=== PATIENT | female | born 1970 | race Caucasian/White ===

== ENCOUNTER 2016-11-20 12:09 | Inpatient (IN) | payer MEDICAID, OTHER ==
[~2016-11-20] VITALS: Ht 167.6 cm; Wt 106.7 kg
[2016-11-20] VITALS (7 sets, daily range): BP systolic 129–159; BP diastolic 71–96; PULSE 67–104; RESP 16–18; O2SAT 95–98
[~2016-11-20 12:09] MED LIST: ALBU8.5H4 IH; AMIT100T2 PO; BENZ-12 PO; GABA600T PO; HYDR-3740 PO; INSLIS SUBQ; KLO1T PO; LISI40TA PO; OMEP40CA36 PO; ONDA4TAB12 PO; PRD5T PO; PRE20 PO
--- NOTE | 2016-11-20 12:30 | ED.REPORT ---
HPI-Neurologic Deficit Date of Service Nov 20, 2016 ED Provider: Farhat Kitchen MD The patient is a 46 year old female with history of MS, lupus, retinitis, fibromyalgia, congestive heart failure, hypertension, GERD, asthma, and anxiety , who presents to the emergency department for pain and pressure behind her eyes that began last night. Her symptoms have gradually worsened since onset and she has also experienced blurred vision and bilateral ear pain. Her symptoms are similar to when she previously had retinitis. She was hospitalized and treated with steroids. She also mentions left arm weakness that she first noticed last night. She feels like she is having an MS flare up. Nursing Notes Stated Complaint: BLURRY VISION Chief Complaint: Neuro Symptoms/ Deficits Nursing Notes Reviewed: Yes Allergies: Coded Allergies: Penicillins (Verified Allergy, Unknown, 05/14/15) iodine (Verified Allergy, Unknown, 05/14/15) tramadol (Verified Allergy, Unknown, 05/14/15) Scheduled Amitriptyline (Amitriptyline) 100 Mg Tablet 100 MG PO HS Gabapentin (Neurontin) 600 Mg Tablet 1,800 MG PO HS Insulin Human Lispro (HumaLOG U100 Insulin Vial) 100 Unit/Ml Unit 1-6 U SUBQ TID with meals, SS Check blood sugars before meals and at bedtime. Use correction factor only before meals. Blood Sugar Lispro Correction: <151, 0 units; 151-175, 1 unit; 176-200, 2 units; 201-225, 3 units; 226-250, 4 units; 251-275, 5 units; 276-300 , 6 units; 301-325, 7 units; 326-350, 8 units; 351-375, 9 units; 376-400, 10 units; >400, 12 units. Lisinopril (Lisinopril) 40 Mg Tablet 40 MG PO DAILY Omeprazole (Omeprazole) 40 Mg Capsule.dr 40 MG PO DAILY Prednisone (PredniSONE) 20 Mg Tablet 20 MG PO DAILY Prednisone (PredniSONE) 5 Mg Tab 5 MG PO DAILY 4 tabs po daily for 3 days; then take 3 tabs po daily for 3 days, then take 2 tabs po daily for 3 days; then take 1 tab po daily for 3 days. Scheduled PRN Albuterol HFA (Albuterol HFA) 8.5 Gm Hfa.aer.ad 1 PUFF IH Q4 PRN PRN For Shortness of Breath Benzonatate (Tessalon Perle) 100 Mg Capsule 100 MG PO TID PRN PRN For Cough Clonazepam (Clonazepam) 1 Mg Tab 1 MG PO TID PRN PRN For Anxiety Hydrocodone-Acetaminophen 10-325 mg (Hydrocodone-Acetaminophen 10-325 mg) 1 Tab Tablet 1 TAB PO QID PRN PRN For Pain Ondansetron ODT (Ondansetron ODT) 4 Mg Tab.rapdis 4 MG PO BID PRN PRN For Nausea General Time Seen by Provider: 12:40 Chief Complaint Other (blurry vision) Hx Obtained From: Patient, Other family... (Father) Arrived By: Wheelchair Sudden in Onset?: Yes Onset Occurred: Yesterday Symptom Duration: Since onset Progression Since Onset: Constant, Gradually worsening Location: : Head Quality: Painful Radiation: : Does not radiate Severity: Current: Moderate Severity: Maximum: Moderate Recent Healthcare: No recent hospitalization Similar Sx Previous: Yes Past Medical History Past Medical History Notes: She just discharged yesterday 05/13/15 from hospital after admission for Exacerbation MS Past Medical History MS Lupus Fibromyalgia Anxiety Nephrolithiasis Arthritis TMJ Reports: Asthma, Cancer, Congestive heart failure, GERD, Hypertension Past Surgical History Ankle surgery x5 Reports: Cholecystectomy, Hysterectomy, Tonsillectomy Reports: Tubal ligation Family History Reports: Diabetes mellitus Smoking History Current Every Day Smoker Social History Alcohol Use: Denies alcohol use Drug Use: Denies drug use Other Social History: Good social support, Local resident Ambulatory Status Independent Review of Systems Constitutional: Denies: Chills, Fever Eyes: Reports: Blurred bilateral, Eye pain bilateral Respiratory: Denies: Non-productive cough, Shortness of breath Cardiovascular: Denies: Chest pain GI: Denies: Nausea, Vomiting Neurologic: Reports: Focal weakness (left arm ), Headache Complete sys rev & neg: except as marked. Ears / Nose / Throat: Reports: Earache bilateral Physical Exam Initial Vital Signs Vital Signs (First) Date Time Temp Pulse Resp B/P Pulse Ox O2 Delivery O2 Flow Rate FiO2 11/20/16 12:13 36.7 104 16 142/90 95 Room Air Initial VS: Reviewed ENT: Mucous membranes moist, Conjunctiva normal, No scleral icterus Neck: Supple, Non-tender, Full range of motion Abdomen / GI: Soft, Non-tender, No guarding, No rebound, No distention Extremities: Vascular intact, Neuro intact, No swelling, No tenderness Skin: Warm, Dry, No cyanosis Psychiatric: Mood/affect normal, Behavior normal, Normal thought content General/Constitutional: Awake, Alert, No acute distress, Cooperative Head / Eyes: Atraumatic, Normocephalic, PERRL, EOMI, No nystagmus Respiratory / Chest: Atraumatic, Breath sounds NL, Breath sounds = bilat, No respiratory distress, No rales, No rhonchi, No wheezing Cardiovascular: Heart rate NL, Regular rhythm, Heart sounds NL, No murmurs, No rubs, Peripheral circulation NL Neurologic: Oriented X3, Speech NL, No sensory deficits, CN II - XII intact, Cerebellar NL, Memory NL Speech is fluent, linear, and organized. Visual cano are equal bilaterally but she does have somewhat peripheral vision bilaterally. Sausage Meat Trimmer strength is slightly diminished on the left. Strength to elbow flexion is slightly diminished on the left. Lower Extremity / Pelvis / MS: No swelling, Non-tender, Neurologic intact, Vascular intact, No edema No calf swelling or tenderness. She has an ankle brace on her left ankle. Interpretation & Diagnostics Lab Results Interpretation Result Diagram: 11/20/16 1343 11/20/16 1406 Test 11/20/16 12:51 11/20/16 13:43 11/20/16 14:06 11/20/16 14:20 Erythrocyte Sedimentation Rate 7mm/hr (0-32) White Blood Count 6.3th/mm3 (3.8-10.1) Red Blood Count 4.42mil/mm3 (3.90-5.20) Hemoglobin 13.5g/dL (12.0-15.6) Hematocrit 39.9% (35.0-46.0) Mean Corpuscular Volume 90.3fL (81-100) Mean Corpuscular Hemoglobin 30.5pg (27.0-35.0) Mean Corpuscular Hemoglobin Concent 33.8% (32.0-37.0) Red Cell Distribution Width 12.9% (12.3-15.4) Platelet Count 310bil/L (150-400) Neutrophils (%) (Auto) 58.7% (40-74) Lymphocytes (%) (Auto) 27.9% (14-46) Monocytes (%) (Auto) 9.3% (4-12) Eosinophils (%) (Auto) 3.0% (0-5) Basophils (%) (Auto) 0.5% (0-3) Sodium Level 141mEq/L (134-144) Potassium Level 4.3mEq/L (3.5-5.2) Chloride Level 102mEq/L (97-108) Carbon Dioxide Level 25mmol/L (18-29) Blood Urea Nitrogen 21mg/dL (6-24) Creatinine 0.86mg/dL (0.57-1.00) Estimat Glomerular Filtration Rate 103mL/min (>59) Glucose Level 95mg/dL (60-99) Calcium Level 9.6mg/dL (8.5-10.1) Magnesium Level 2.1mg/dL (1.6-2.6) Total Bilirubin 0.2mg/dL (0.0-1.2) Aspartate Amino Transf (AST/SGOT) 26U/L (0-50) Alanine Aminotransferase (ALT/SGPT) 50U/L (0-32) Alkaline Phosphatase 72U/L (25-150) Total Protein 6.8g/dL (6.4-8.4) Albumin 4.1g/dL (3.4-5.0) Hold Tesfaye Top Tube Received (Received) C-Reactive Protein 0.3mg/dL (0.0-0.5) ECG Interpretation ECG Interpretation: Normal sinus rhythm with a rate of 81 Time: 13:38 Interpreted by: ED physician CT Head Interpretation IMPRESSION: No acute intracranial abnormality. Dictated by: Yovanny Greco M.D. on 11/20/2016 at 13:10 Study: Head CT no contrast Interpretation / Wet Read by: Interpret - Radiologist Re-Eval/Medical Decision Med Decision/Clinical Course The patient is a 46 year old female with history of MS, lupus, previous episodes of optic neuritis/retinitis who presents to the emergency department complaining of bilateral retro-orbital pain as well as progressively worsening blurry vision over the last 24 hours. On arrival she was unable to distinguish any letters on the visual acuity exam. She was afebrile with stable vital signs show additionally had weakness of her left arm which she states has been intermittent over the last couple of days as well. All of these symptoms are similar in nature to previous MS flares which have required treatment with high-dose steroids in the past. Currently, she is not on any immune modulating drugs or steroids. CT scan of the head demonstrated no evidence of acute intracranial process. Laboratory studies were notable as below: CBC unremarkable, CMP unremarkable, CRP is WNL, UA pending. The patient was discussed with her neurologist Dr. Baires who felt that the patient should be at this time started on high-dose steroids. We administered 1000 mg IV methylprednisolone. The patient reported significant pain is initially treated with oral Lignum though did not achieve symptom relief. Thereafter, I administered 0.5 mg of IV hydromorphone. She reported symptomatic improvement. At this time I see no evidence of acute ischemic stroke though this does remain on the differential diagnosis. Given her overall neurologic history and clinical picture this seems unlikely and she is not within any TPA window. She is without fever, leukocytosis or meningismus and acute infectious etiology such as meningitis seems unlikely. The patient was discussed with the admitting hospitalist transfer [facility] the [facility] in consultation with neurology for further workup and management. Source of Hx: Old records, Family Re-Evaluation/Progress : Time of Eval: 14:15 Re-Evaluation/Progress Note: Discussed plan for admission. All questions were addressed. Consultation #1: Referral / Consult Name: Sree Baires MD Consulted With: Neurology Call Returned at: 13:54 Grip Assembler: Agrees with eval, Agrees with plan Consultation #2: Referral / Consult Name: Francisco Castro MD Consulted With: Hospitalist Requested Call at: 13:47 Call Returned at: 14:36 Grip Assembler: Will see patient, Agrees with eval, Agrees with plan, Accepts admit Counseled Regarding: Diagnosis, Lab results, Need for admission Discharge & Departure Impression: Primary Impression: Exacerbation of multiple sclerosis Additional Impressions: Blurry vision, bilateral Retro-orbital pain of both eyes Weakness of left arm History of lupus History of optic neuritis Disposition: ADMITTED TO HOSPITAL Discharge Condition All VS Reviewed: Yes Condition: Stable Referrals: Radha Ramírez (PCP) Crit Care Except Billable Proc Time Spent: 105-134 minutes Services Performed: Patient management by me, Time spent at bedside, Reviewing test results, Reviewing imaging, Discussing patient care, Documentation in record, Time with fam/surrogate Scribe Attestation Portions of this note were transcribed by Quiana Norton. IDr. Princet personally performed the history, physical exam and medical decision-making; I reviewed and confirmed the accuracy of the information in the transcribed note. Signed by: Zeinab Sage, 11/20/2016 and 1515. copies to: Radha Ramírez Beck O MD Nov 20, 2016 12:30 Quiana Norton Nov 20, 2016 12:55
[2016-11-20] MEDS ORDERED: HYDROcodone-APAP 7.5-325 mg Tablet PO ONE (13:00)
[2016-11-20] MEDS ORDERED: Alum-Mag Hydrox-Simeth 30 mL Suspension PO PRN (13:00)
--- NOTE | 2016-11-20 13:13 | DRSVH ---
PROCEDURE: CT BRAIN WITHOUT CONTRAST ([id number]) INDICATIONS: headache, blurry vision TECHNIQUE: Noncontrast 4.5 mm thick angled axial sections acquired from the foramen magnum to the vertex, with c oronal reformats. COMPARISON: [facility], MR, MS BRAIN W & W/O CONT, 03/08/2015, 12:21. [facility], MR, MR MS BRAIN W&WO CON, 05/12/2015, 13:02. FINDINGS: Image quality: Excellent. CSF spaces: Basal cisterns are patent. No extra-axial fluid collections. Ventricles are normal in size and shape. Brain: No midline shift. No intracranial masses or hemorrhage. Helm-white matter interface is norm al. Skull and face: Calvarium and visualized facial bones are intact, without suspicious lesions. Sinuses: Visualized sinuses and mastoids are clear. IMPRESSION: No acute intracranial abnormality. Dictated by: Yovanny Greco M.D. on 11/20/2016 at 13:10 Approved by: Yovanny Greco M.D. on 11/20/2016 at 13:11
[2016-11-20] MEDS: Ondansetron 2 mg/mL 2 mL Inj IVPUSH PRN ×3 (13:20→21:35)
[2016-11-20 14:11] LABS: BASOPHILS % (AUTO) 0.5 % (0-3); MONOCYTES % (AUTO) 9.3 % (4-12); Mean Corpuscular Hemoglobin 30.5 pg (27.0-35.0); Mean Corpuscular Volume 90.3 fL (81-100); NEUTROPHILS % (AUTO) 58.7 % (40-74); Platelet Count 310 bil/L (150-400)
[2016-11-20] MEDS ORDERED: Methylpred Sodium Succ Inj 1,000 MG in Dextrose 5% 250 ML IV ONE (14:15)
[2016-11-20 14:46] LABS: Magnesium 2.1 mg/dL (1.6-2.6)
[2016-11-20] MEDS ORDERED: Polyethylene Glycol (PEG) 17 Gm Powder PO PRN (14:55)
[2016-11-20] MEDS ORDERED: HYDROmorphone 0.5 mg/0.5 mL iSecure Syringe ONE (15:17)
[2016-11-20] MEDS ORDERED: Glucose 40% Oral Gel 15 Gm Tube PO PRN (15:20)
[2016-11-20] MEDS ORDERED: Albuterol 2.5 mg/3 mL Inhalation Solution NEB PRN (16:00)
[2016-11-20] MEDS: Insulin LISPRO 300 Unit/3 mL Inj SUBQ SCH ×2 (17:30→21:36)
--- NOTE | 2016-11-20 17:36 | PCM.HPMED ---
Subjective Date of Service Nov 20, 2016 Primary Provider: Admitting Physician: Primary Care Physician: Radha Ramírez Attending Physician: Admit Status: From the Emergency Department Chief Complaint: - blurry vision and bilateral ear pain History of Present Illness: 46 year old female with h/o multiple sclerosis, lupus, retinitis, fibromyalgia, congestive heart failure, hypertension, GERD, asthma, anxiety, presented to ED with c/o pain and pressure behind her eyes that began last night. She states that her symptoms have gradually worsened since onset and she has also experienced blurred vision and bilateral ear pain. It is also associated with head ache. She had similar episodes in the past and was diagnosed with retinitis. She was admitted and treated with intravenous steroids. She also mentions left arm weakness that she first noticed last night. She feels like she is having an exacerbation of multiple sclerosis. Pt seen and examined bed side. She still c/o blurry vision, Also mentions that her pain his significantly less than before. Allergies Coded Allergies: Penicillins (Verified Allergy, Unknown, 05/14/15) iodine (Verified Allergy, Unknown, 05/14/15) tramadol (Verified Allergy, Unknown, 05/14/15) PMH MS Lupus Fibromyalgia Anxiety Asthma, Congestive heart failure, GERD, Hypertension Surgical History - Ankle surgery - Cholecystectomy, - Hysterectomy, - Tonsillectomy - Tubal ligation Family History - Diabetes in both parents Social History Hx Alcohol Use: No ("i am allergic to it") Hx Substance Use: No Smoking Status: Current Every Day Smoker Exam Vital Signs Vital Sign - Last Date Time Temp Pulse Resp B/P Pulse Ox O2 Delivery O2 Flow Rate FiO2 11/20/16 12:13 36.7 104 16 142/90 95 Room Air Exam General/Constitutional: Awake, Alert, No acute distress, Cooperative Head / Eyes: Atraumatic, blurry vision. ENT: Mucous membranes moist, Conjunctiva normal, No scleral icterus Neck: Supple, Non-tender, Full range of motion Respiratory: Atraumatic, Breath sounds normal and bilaterally equal, No respiratory distress, No rales, No rhonchi, No wheezing Cardiovascular: Regular rate and rhythm, no murmur, no gallop, S1,S2: normal Abdomen / GI: Soft, Non-tender, No guarding, No rebound, No distention Extremities: Vascular intact, Neuro intact, No swelling, No tenderness Skin: Warm, Dry, No cyanosis Psychiatric: Mood/affect normal, Behavior normal, Normal thought content Neurologic: Oriented X3, Normal speech, No focal neurological defects, Normal strength,. Lab and Diagnostics Result Diagram: 11/20/16 1343 11/20/16 1406 Assessment & Plan Blurry vision likely acute multiple sclerosis - Will start on IV methyl prednisolone 1000 mg daily - Neurology consulted from ED. Will follow their recommendations. Diabetes - Will place on insulin lispro sliding scale Anxiety - on amitriptyline 50 mg HS - clonazepam prn Neuropathic pain - on gabapentin GI ppx: PPI DVT ppx: Heparin Antiemetics and Analgesics as per protocol Code: Full code Status: To be admitted as inpatient likely due to complexity of medical conditions that will require more than two days of hospital stay. Pain Evaluation: Adequate Pain Control GI Prophylaxis: Proton Pump Inhibitor VTE Prophylaxis: Sub-Q Heparin (Unfractionated) Resuscitation Status: CPR: Attempt Resuscitation Ace Shaffer MD Nov 20, 2016 15:14
[2016-11-20] MEDS ORDERED: HYDR25TA4 PO (17:48)
[2016-11-20] MEDS ORDERED: OXYC-407 PO (17:48)
[2016-11-20] MEDS ORDERED: AMLO10TA3 PO (17:48)
[2016-11-20] MEDS: HYDROmorphone 1 mg/mL Inj IVPUSH PRN (17:55)
--- NOTE | 2016-11-20 18:43 | NUR ---
Admit Pt admitted to [facility] from ED at 1638. pt c/o forehead/eye pain 06/01. IV in LFA patent. tele in place SR 70-80s. Pt is SBA d/t weakness from MS-per pt. Personal belongings put away. Bed in low position, upper rails up, call light in reach. Admit info complete, including med rec.
[2016-11-20 19:48] LABS: APPEARANCE,URINE CLEAR (CLEAR,HAZY); COLOR,URINE YELLOW (YELLOW); OCCULT BLOOD,URINE NEGATIVE (NEGATIVE); PH,URINE 6.5 (5.0-8.0); UROBILINOGEN,URINE NORMAL (NORMAL)
[2016-11-20] MEDS: Pantoprazole 20 mg ER24 Tablet PO SCH (19:55)
[2016-11-21] VITALS (9 sets, daily range): BP systolic 126–148; BP diastolic 81–93; PULSE 72–120; RESP 18; O2SAT 96–100
[2016-11-21] MEDS: Ondansetron 2 mg/mL 2 mL Inj IVPUSH PRN ×5 (01:30→19:59)
[2016-11-21] MEDS: HYDROmorphone 1 mg/mL Inj IVPUSH PRN ×5 (02:56→19:59)
[2016-11-21 06:04] LABS: BASOPHILS % (AUTO) 0.1 % (0-3); EOSINOPHILS % (AUTO) 0.2 % (0-5); MONOCYTES % (AUTO) 1.9 % (4-12); Mean Corpuscular Hemoglobin 30.4 pg (27.0-35.0); NEUTROPHILS % (AUTO) 86.4 % (40-74); Platelet Count 315 bil/L (150-400)
--- NOTE | 2016-11-21 07:25 | NUR ---
Pain Pt reported significant pain to forehead and behind eyes all shift. Pt also nauseated due to pain. Pt receiving pain medication as well as nausea medication over shift to manage symptoms. Pt is getting up to BR SBA and ambulating with steady gait
--- NOTE | 2016-11-21 07:37 | NUR ---
Off unit Pt transported off unit to [facility] this morning at 0730. [facility]ing[employer]ma notified of transfer. Addendum: 11/21/16 at 0928 by SHA LERMA RN Pt back on unit, electronic service technician notified.
[2016-11-21] MEDS ORDERED: Methylpred Sodium Succ Inj 1,000 MG in Dextrose 5% 250 ML IV ONE (08:30)
[2016-11-21] MEDS: Insulin LISPRO 300 Unit/3 mL Inj SUBQ SCH ×4 (09:12→22:00)
[2016-11-21] MEDS ORDERED: 0.9% Sodium Chloride 250 ML ONE (09:17)
[2016-11-21] MEDS: Lisinopril 40 Tablet PO SCH (09:22)
--- NOTE | 2016-11-21 10:08 | DRSVH ---
PROCEDURE: MRI MULTIPLE SCLEROSIS BRAIN WITH AND WITHOUT CONTRAST ([id number]) INDICATIONS: MS Exacerbation TECHNIQUE: Noncontrast sagittal and axial FLAIR, axial and coronal T2 fast spin echo, axial VIBE, axial gradient echo, axial diffusion and ADC through the brain. After the administration of contrast, axial and co lili VIBE with fat saturation through the brain. COMPARISON: [facility], MR, MS BRAIN W & W/O CONT, 03/08/2015, 12:21. [facility], MR, MR MS BRAIN W&WO CON, 05/12/2015, 13:02. FINDINGS: Image quality: Limited by motion artifact. CSF spaces: Ventricles are normal in size and shape. Basal cisterns are patent. No extra-axial flu id collections. Brain: No intracranial bleeds or mass effects. Helm-white matter interface appears intact. No susp icious white matter lesions. No abnormal intracranial enhancement. Diffusion weighted images show n o acute ischemic insults. Single, punctate, focus of increased T2 signal in the left frontal subcorti bhupinder white matter is stable compared to prior examinations. Brainstem appears normal. Normal intravas cular flow voids are present. Skull and face: Calvarial marrow signal is normal. Orbits appear normal. Sinuses: Sinuses and mastoids are clear. IMPRESSION: 1. Stable examination with no acute intracranial disease process. 2. Single, punctate focus of increased T2 signal in the left frontal subcortical white matter is stab le compared to prior examinations. No white matter lesions are identified in the brain parenchyma wen t are specific for demyelinating process. 3. No abnormal intracranial mass or mass effect. 4. No abnormal postcontrast enhancement. Dictated by: Kari Ortega MD, PhD on 11/21/2016 at 9:26 Approved by: Kari Ortega MD, PhD on 11/21/2016 at 10:06
--- NOTE | 2016-11-21 10:28 | DRSVH ---
PROCEDURE: MRI THORACIC SPINE WITH AND WITHOUT CONTRAST ([id number]) INDICATIONS: MS Exacerbation TECHNIQUE: Noncontrast sagittal T1 spin echo and T2 fast spin echo, sagittal STIR, axial T1 and T2 fast spin ech o through the thoracic spine. After the administration of contrast, axial and sagittal T1 spin echo with fat saturation through the thoracic spine. COMPARISON: [facility], MR, MR THORACIC SPINE W&WO CON, 05/13/2015, 12:22. FINDINGS: Image quality: Excellent. Alignment and curvature: There is normal bony alignment. Marrow: 1 cm lesion in the T5 vertebral body which demonstrates peripheral enhancement stable compare d to prior examinations likely represents a hemangioma. Reactive endplate change is noted adjacent to the T7-T8, Z2-J2-A6-T10 discs. No acute vertebral body compression fractures. Spinal cord: Visualized spinal cord is of normal signal and size, without abnormal enhancement. Paraspinous soft tissues: No paravertebral masses or abnormal enhancement. 1.4 cm right renal cyst i s partially visualized. Miscellaneous: Small T11-T12 central disc protrusion superimposed upon a minimal, diffuse disc bulge is stable compared to prior examination. Central canal and foramina appear widely patent at all scan eugene levels. IMPRESSION: 1. Stable examination compared to 05/13/15. 2. No abnormal spinal cord signal or enhancement to suggest demyelinating process. 3. No central stenosis. 4. No neural foraminal narrowing. 5. No neural impingement. Dictated by: Kari Ortega MD, PhD on 11/21/2016 at 10:07 Approved by: Kari Ortega MD, PhD on 11/21/2016 at 10:27
--- NOTE | 2016-11-21 10:47 | DRSVH ---
PROCEDURE: MRI CERVICAL SPINE WITH AND WITHOUT CONTRAST ([id number]) INDICATIONS: MS Exacerbation TECHNIQUE: Noncontrast sagittal T1 spin echo and T2 fast spin echo, sagittal STIR, sagittal PD fast spin echo, f oraminal oblique sagittal T2 fast spin echo, axial gradient echo or T2 fast spin echo through the cer vical spine. After the administration of contrast, sagittal and axial T1 spin echo with fat saturati on through the cervical spine. COMPARISON: [facility], MR, MR CERVICAL SPINE W&WO CON, 05/12/2015, 13:02. [facility], MR, CERVICAL SPINE W&W/O CONTRAST, 03/08/2015, 12:21. FINDINGS: Image quality: Limited by motion artifact. Alignment and curvature: There is normal bony alignment and curvature. Marrow: Marrow demonstrates normal overall signal. Spinal cord: Visualized spinal cord is normal in size, without white matter lesions within the limit ations caused by motion artifact. No suspicious intramedullary enhancement within limitations caused by motion artifact. No cerebellar tonsillar herniation. Paraspinous soft tissues: No paravertebral masses or suspicious enhancement. C2-C3: Normal appearance. C3-C4: Loss of disc signal. Minimal, diffuse disc bulge. No central stenosis. No neural foraminal escobar rowing. No neural impingement. C4-C5: Loss of the signal. Mild, diffuse disc bulge. No central stenosis. No neural foraminal narrowi ng. No neural impingement. C5-C6: Loss of disc signal. Mild, diffuse disc bulge. Moderate-sized central disc protrusion superimp osed on diffuse disc bulge. Mild narrowing of the central canal secondary to disc disease. No neural foraminal narrowing. C6-C7: Loss of disc signal. Mild, diffuse disc bulge. Small left central disc protrusion superimposed on diffuse disc bulge. Mild central canal secondary to disease. Mild left neuroforaminal narrowing s econdary to disc disease. C7-T1: Normal appearance. IMPRESSION: 1. Image quality limited by motion artifact. 2. No abnormal spinal cord signal or enhancement identified within limitations caused by motion artif act. 3. Multilevel degenerative disc disease. 4. Mild C5-C6 and C6-C7 central canal narrowing. 5. Mild left C6-C7 neural foraminal narrowing. Dictated by: Kari Ortega MD, PhD on 11/21/2016 at 10:37 Approved by: Kari Ortega MD, PhD on 11/21/2016 at 10:45
[2016-11-21] MEDS: Pantoprazole 20 mg ER24 Tablet PO SCH ×2 (11:25→20:23)
--- NOTE | 2016-11-21 14:10 | NUR ---
Social Work-initial assessment: Data:See initial assessment. Pt is a 46 y/o female who was admitted on 11/20/16 for MS Flare per H&P. Pt's insurance is [employer] and PCP is Radha Ramírez MD. EMR Reviewed. SW met with pt at bedside to discuss discharge planning,SW role explained. Pt is alert and oriented x3. Pt resides at home with her mom and dad in [place] where she remains independent with ADLs. Pt's home is 2 story, but has stair climber. Pt does not drive and uses a fww or cane at baseline. Pt has no HH or SNF history. Pt has no senior care care insurance or VA benefits. SW discussed DPOA/ advanced directive, pt has never completed this forms, but is interested. SW provided her with forms to complete. Pt has [facility] caregivers 110 hours a month and her CM is rhoda Joness faxed. Pt states her parents will provide transport home. Per RN notes, pt has been up independent in her room. SW provided plan and phone number on white board in room. No anticipated discharge needs. SW will continue to follow if needs arise. Assessment:Pt who is independent at baseline. Plan: Pt to discharge home when medically stable via POV. Pt to continue with [facility] at home. No anticipated discharge needs. SW will continue to follow if needs arise. Marilu Alford MSW
--- NOTE | 2016-11-21 15:12 | PCM.PNMED ---
Subjective Date of Service Nov 21, 2016 Subjective Flori reports she is doing a bit better this morning. She is still having pain behind her eyes and sinuses and her vision is still blurry. She reports she did have URI symptoms recently, but that has resolved. She also continues to smoke. She voiced that she would like Fentanyl instead of Dilaudid because it was more effective last time. Exam Vital Signs Vital Sign - Last Date Time Temp Pulse Resp B/P Pulse Ox O2 Delivery O2 Flow Rate FiO2 11/21/16 04:41 36.4 78 18 138/89 100 Nasal Cannula 2.00 Intake and Output 11/20/16 11/20/16 11/21/16 Cumulative From/Thru 15:00 23:00 07:00 11/20/16 12:13 - 11/21/16 06:18 Intake Total 800 ml 800 ml Output Total 1950 ml 1950 ml Balance -1150 ml -1150 ml Intake Oral 800 ml 800 ml Output Urine Total 1950 ml 1950 ml Exam General/Constitutional: Awake, Alert, No acute distress, Cooperative Head / Eyes: Atraumatic, blurry vision. EOMI ENT: Mucous membranes moist, Conjunctiva normal, No scleral icterus Neck: Supple, Non-tender, Full range of motion Respiratory: CTAB No respiratory distress, No rales, No rhonchi, No wheezing Cardiovascular: Regular rate and rhythm, soft systolic murmur noted Abdomen / GI: Soft, Obese, Non-tender, No guarding, No rebound, No distention Extremities: Vascular intact, Neuro intact, No swelling, No tenderness Skin: Warm, Dry, No cyanosis Psychiatric: Mood/affect normal, Behavior normal, Normal thought content Neurologic: Oriented X3, Normal speech, No focal neurological defects, Normal strength,. IVs and Medications Medications Reviewed: Medications were reviewed in detail Lab and Diagnostics Result Diagram: 11/21/1651911/21/16519 Assessment & Plan 46 yo F with h/o MS, Lupus, optic neuritis, HTN, and anxiety who presents with complaints of pain and pressure behind her eyes beginning last night. Admitted for possible exacerbation of MS Blurry vision, POA -Likely due to MS exacerbation of Optic neuritis -Will start on IV methyl prednisolone 1000 mg daily -Awaiting Neurology consultation -IV Dilaudid for pain management -Improving Steroid Induced DM2 - Will place on insulin lispro sliding scale H/O Anxiety - Continue Amitriptyline 50 mg HS - Clonazepam prn Neuropathic pain - Continue on Gabapentin - Consider changing dosing to TID instead of QHS GI ppx: PPI DVT ppx: Heparin Antiemetics and Analgesics as per protocol Code: Full code Status: To be admitted as inpatient likely due to complexity of medical conditions that will require more than two days of hospital stay. GI Prophylaxis: Proton Pump Inhibitor VTE Prophylaxis: Sub-Q Heparin (Unfractionated) VTE Mechanical Devices: Venous Foot Pump Resuscitation Status: CPR: Attempt Resuscitation Time spent 25 minutes Attending Statement I have seen and evaluated patient at bedside in addition to directly supervised care provided by resident physician. I agree with above documentation. Dagoberto Arango DO Nov 21, 2016 07:39 Santosh Holder DO Nov 22, 2016 08:16
--- NOTE | 2016-11-21 18:29 | NUR ---
Pain/nausea Pt continues to c/o pain/discomfort. She states pain is more localized to her head/pressure behind eyes but she has generalized discomfort as well, rating 8-9/10. She reports that she still has blurred vision. PRN Dilaudid mildly effective. Pt spoke with re: starting Fentanyl for better pain management and per pt, MD chose to defer to neurologist at this time. She did c/o vague nausea off and on this shift, PRN antiemetic given with effective results. Bed in lowest, locked position and call light in reach.
[2016-11-21] MEDS: oxyCODONE-Acetamin 5-325 mg Tablet PO PRN (22:29)
[2016-11-22] VITALS (9 sets, daily range): BP systolic 115–144; BP diastolic 73–101; PULSE 68–96; RESP 18; O2SAT 94–98
[2016-11-22] MEDS: Ondansetron 2 mg/mL 2 mL Inj IVPUSH PRN ×5 (00:33→20:57)
[2016-11-22] MEDS: HYDROmorphone 1 mg/mL Inj IVPUSH PRN ×5 (03:54→20:56)
--- NOTE | 2016-11-22 05:39 | NUR ---
Pain/tearfulness/Nausea/Tele Pt very tearful at the beginning of the shift and packed her belongings to leave the hospital because she felt that her pain/medications were not being managed well. Dr Baires assessed the Pt and made changes to medications per her request. Pt's mood and behavior improved during his assessment and no other tearful episodes noted. Eye/forehead/ankle pain managed with Dilaudid and Percocet with good effect. Zofran x 2 given for c/o nausea with good effect as well. "I can not believe I slept for a few hours" smiling. Tele:SR HR 80-90s. Denies shortness of breath and chest pain. Pt resting at this time.
[2016-11-22] MEDS: oxyCODONE-Acetamin 5-325 mg Tablet PO PRN ×3 (06:37→22:34)
[2016-11-22 06:38] LABS: EOSINOPHILS % (AUTO) 0 % (0-5); Mean Corpuscular Volume 90.5 fL (81-100); Platelet Count 380 bil/L (150-400)
[2016-11-22 07:13] LABS: NEUTROPHILS % (AUTO) 85 % (40-74)
[2016-11-22 07:14] LABS: BASOPHILS % (AUTO) 0 % (0-3); MONOCYTES % (AUTO) 5 % (4-12)
[2016-11-22] MEDS: Insulin LISPRO 300 Unit/3 mL Inj SUBQ SCH ×4 (08:00→21:32)
[2016-11-22] MEDS: Pantoprazole 20 mg ER24 Tablet PO SCH ×2 (08:50→20:55)
[2016-11-22] MEDS: Lisinopril 40 Tablet PO SCH (08:51)
--- NOTE | 2016-11-22 09:47 | PCM.PNMED ---
Subjective Date of Service Nov 22, 2016 Subjective Was able to sleep better overnight with the addition of Percocet for breakthrough pain. Still complaining of retro-orbital pain and blurry vision. She reports this has not improved much since yesterday. Has been able to tolerate PO intake. Exam Vital Signs Vital Sign - Last Date Time Temp Pulse Resp B/P Pulse Ox O2 Delivery O2 Flow Rate FiO2 11/22/16 05:14 36.6 74 18 116/73 96 CPAP 11/21/16 04:41 2.00 Intake and Output 11/21/16 11/21/16 11/22/16 Cumulative From/Thru 15:00 23:00 07:00 11/20/16 12:13 - 11/22/16 06:46 Intake Total 790 ml 800 ml 2390 ml Output Total 2200 ml 1300 ml 5450 ml Balance -1410 ml -500 ml -3060 ml Intake Oral 790 ml 800 ml 2390 ml Output Urine Total 2200 ml 1300 ml 5450 ml Exam General/Constitutional: Awake, Alert, No acute distress, Cooperative Head / Eyes: Atraumatic, PERRLA, EOMI ENT: Mucous membranes moist, Conjunctiva normal, No scleral icterus Neck: Supple, Non-tender, Full range of motion Respiratory: CTAB No respiratory distress, No rales, No rhonchi, No wheezing Cardiovascular: Regular rate and rhythm, soft systolic murmur noted Abdomen / GI: Soft, Obese, Non-tender, No guarding, No rebound, No distention Extremities: Vascular intact, Neuro intact, No swelling, No tenderness Skin: Warm, Dry, No cyanosis Psychiatric: Normal mood and affect this morning Neurologic: Alert and oriented x3, conversive, fluent IVs and Medications Medications Reviewed: Medications were reviewed in detail Lab and Diagnostics Result Diagram: 11/22/1660911/22/16 0610 Assessment & Plan 46 yo F with h/o MS, Lupus, optic neuritis, HTN, and anxiety who presents with complaints of pain and pressure behind her eyes beginning last night. Admitted for possible exacerbation of MS and Optic Neuritis Blurry vision, POA -Likely due to MS exacerbation of Optic neuritis -Will continue IV Solu-medrol 250mg 4x per day. Patient had IV Solumedrol 1gram on 11/21. Per recommendations, will need 3 days of intense IV solu-medrol then transition to PO Prednisone (1mg/kg) for 11 days to make 14 days total of aggressive steroid therapy. Then short taper off. -Appreciate Neurology input and recommendations. -IV Dilaudid and PO Percocet for pain management -Stable -Elevated WBC today, likely due to Steroids, but continue to monitor closely for s/s of infection. Steroid Induced DM2, POA - Will place on insulin lispro sliding scale H/O Anxiety, POA - Continue Amitriptyline 50 mg HS - Clonazepam 1mg TID prn Neuropathic pain, POA - Continue on Gabapentin - Dosing per Neurology GI ppx: PPI DVT ppx: Heparin Antiemetics and Analgesics as per protocol Code: Full code Status: Will require at least 2-3 days for IV steroids and tapering. Pain Evaluation: Adequate Pain Control GI Prophylaxis: Proton Pump Inhibitor VTE Prophylaxis: Sub-Q Heparin (Unfractionated) VTE Mechanical Devices: Venous Foot Pump Resuscitation Status: CPR: Attempt Resuscitation Time spent 30 minutes Attending Statement I have seen and evaluated patient at bedside in addition to directly supervising care provided by resident physician. I agree with above documentation. Dagoberto Arango DO Nov 22, 2016 07:39 Santosh Holder DO Nov 22, 2016 14:37
--- NOTE | 2016-11-22 09:48 | CONS ---
[address] [address] CONSULTATION REPORT PATIENT: RICK BRIGGS : 1970 MR#: [id number] ADMIT: 11/20/2016 JOB ID: [id number] DATE OF SERVICE: 11/20/2016 NEUROLOGY CONSULTATION: CHIEF COMPLAINT: Bilateral blurred vision. HISTORY OF PRESENTING ILLNESS: The patient is a pleasant 46-year-old, right-handed woman with multiple medical problems, who does have a history reportedly of relapsing remitting multiple sclerosis and systemic lupus erythematosus followed by Dr. Ramírez, and has seen Dr. Taylor at the [facility] in 2014. She presents with new onset of blurred vision in both eyes. She reports that this has been of gradual onset. She reports that she has retrobulbar pain. She has also noted left upper extremity weakness, which she reports is mild and developed gradually. I did see her in 2014, when she was treated for a presumed optic neuritis exacerbation. It appears that she then saw her primary care provider, Dr. Aguilar, who contacted me and was concerned that some of her symptoms may have been secondary to somatization. It appears that after that she re-established with another provider and care beyond this is unclear. She has not seen me since 2014, and it is unclear if she has seen a neurologist in the interim. She reports retrobulbar pain. She also reports "color washout." PAST MEDICAL HISTORY: She does also have a history reportedly of asthma, anxiety , gastroesophageal reflux disease, hypertension, congestive heart failure and fibromyalgia. ALLERGIES: 1. PENICILLIN. 2. IODINE. 3. TRAMADOL. MEDICATIONS: 1. Amitriptyline 100 mg p.o. q.h.s. 2. Gabapentin. She reports being on 2400 mg of gabapentin at bedtime. 3. She also is diabetic and is on lispro. 4. Hypertensive on lisinopril. 5. She also takes omeprazole. 6. P.r.n. are: a. Albuterol. b. Benzonatate. c. Clonazepam. d. Hydrocodone/acetaminophen. e. Ondansetron. She also reports a history of nephrolithiasis, temporomandibular joint dysfunction. She also reports a history of cancer; it is unclear which type. PAST SURGICAL HISTORY: She has had five ankle surgeries and reports that she is taking oxycodone p.r.n., as she is recovering from the most recent ankle surgery. She does report a history of a cholecystectomy, hysterectomy, tonsillectomy and tubal ligation. FAMILY HISTORY: Diabetes. SOCIAL HISTORY: She does smoke. No drugs or alcohol. REVIEW OF SYSTEMS: A complete review of systems was performed and was remarkable for above noted. She also notes a headache associated with the retrobulbar pain. She did have a CT of her head which demonstrated no acute intracranial abnormality. She was screened for a possible urinary tract infection with UA that was unremarkable. LABORATORY STUDIES: WBC of 6.3, hemoglobin 13.5, hematocrit 39.9, and platelets of 310. Chemistries: Sodium 141, potassium 4.3, chloride was 102, bicarb was 25, BUN was 21, creatinine 0.86 and glucose 95. LFT were within normal limits with the exception of an ALT of 50. Temperature 36.7, pulse of 104, respiratory rate of 16, blood pressure 142/90, pulse oximetry 95% on room air. PHYSICAL EXAMINATION: General: She is a well-developed, well-nourished woman in mild acute distress. Head: Normocephalic, atraumatic. Neck is supple. No carotid bruits were auscultated. Chest: Clear to auscultation. Heart: Regular rate and rhythm. Abdomen: Soft, nondistended, nontender. Extremities: No cyanosis, clubbing, or edema. NEUROLOGIC EXAMINATION: Mental status, she is awake, alert, oriented x3. Speech clear and fluent with intact comprehension. There was no aphasia. Cranial nerves: Pupils are equal, round, reactive to light. Extraocular movements were full and conjugate, although she reported discomfort with this activity while assessing this. Visual cano were full to confrontation. Visual acuity in both eyes was 20/400. Face appeared symmetrical. Facial sensation was intact to light touch and temperature. Auditory sensation was intact to finger rub. Palatal elevation was symmetrical. Tongue was midline. Sternocleidomastoid and trapezii were 5/5 bilaterally. Motor: There was trace weakness in the left upper extremity, 5-/5. The rest, normal tone and bulk. Sensation intact to light touch and temperature. Deep tendon reflexes 2+ and symmetrical. Plantars are flexor bilaterally. Coordination, djjxyc-hy-cnio was intact without evidence of dysmetria. Gait was deferred. IMPRESSION: It appears that she does have a recurrent optic neuritis based on clinical history and examination. I will contact Dr. Taylor to discuss any further recommendations. I do recommend five days of IV methylprednisolone. I also recommend obtaining magnetic resonance imaging studies of her brain and cervical and thoracic spines to exclude the possibility of an exacerbation of multiple sclerosis. It appears that she has followed with her primary care provider. I will attempt to ascertain if she has seen a neurologist in the interim since seeing me in 2014. It appears that she is not on any disease modifying therapy for either her relapsing remitting multiple sclerosis or her systemic lupus erythematosus. As this appears to be the second bout of optic neuritis, it is certainly possible that this may represent an underlying neuromyelitis optica and I will ascertain if this antibody has been sent for from her abstract searcher. If not, she would benefit from seeing her abstract searcher and possibly even a neuro-abstract searcher as an outpatient. I also recommend obtaining a Addison Montesinos virus screen. I do recommend that upon leaving the hospital should follow up with her primary care provider and establish with a neurologist preferably a multiple sclerosis specialist and return to see and possibly a neuro-abstract searcher. Thank you, again, Dr. Farhat Kitchen for allowing me to participate in the care of your patient. Please feel free to contact me with any questions or concerns. I will continue to follow. VICKY
--- NOTE | 2016-11-22 09:55 | DRSVH ---
PROCEDURE: X-RAY CHEST ONE VIEW, PORTABLE ([id number]) INDICATIONS: Shortness of Breath TECHNIQUE: One view of the chest was acquired. COMPARISON: [facility], , CHEST 1VW (PORTABLE), 03/10/2015, 13:22. FINDINGS: Surgical changes and devices: None. Lungs and pleura: No pleural effusions or pneumothorax. Lungs are clear. Mediastinum: Mediastinal contours appear normal. Heart size is normal. Bones and chest wall: No suspicious bony lesions. Overlying soft tissues appear unremarkable. IMPRESSION: No acute cardiopulmonary disease. Dictated by: Alexandre SCOTT Interpreted: Peter Farmer MD on 11/22/2016 at 9:54 Transcribed by: ANA on 11/22/2016 at 9:54 Approved by: Prabhjot Farmer M.D. on 11/22/2016 at 14:15
--- NOTE | 2016-11-22 11:25 | PROG NOTE ---
[address] [address] PROGRESS NOTE PATIENT: RICK BRIGGS : 1970 MR#: [id number] ADMIT: 11/20/2016 JOB ID: [id number] DATE: 11/21/2016 SUBJECTIVE: The patient reports a mild degree of improvement in her vision overnight. Visual acuity today, she is able to correctly identify two numbers on the 2200 line in both eyes. IMAGING STUDIES: MRI of her brain revealed stable examination with no acute intracranial disease process. Single punctate focus of increased T2 signal in the left frontal subcortical white matter is stable when compared to prior examinations. No white matter lesions are identified in the brain parenchyma that are specific for a demyelinating process. No abnormal intracranial mass or mass effect. No abnormal postcontrast enhancement. The MRI of the thoracic spine demonstrated a stable examination when compared to the prior MRI of May 13, 2015. No abnormal spinal cord signal or enhancement to suggest a demyelinating process. A 1.4 cm right renal cyst was partially visualized. There were reactive end-plate changes noted adjacent to the T7-T8, T8-T9 and T10 disks. There is also a 1 cm lesion in the T5 vertebral body likely representing a hemangioma. No central stenosis, no neural foraminal narrowing and no neural impingement. The MRI of the cervical spine was limited by motion artifact. However, it demonstrated no abnormal spinal cord signal or enhancement identified within the limitations caused by motion artifact, multilevel degenerative disk disease, mild C5-C6 and C6-C7 central canal narrowing and mild left C6-C7 neural foraminal narrowing. I did contact Dr. Taylor and reviewed this case with her. Based on this history, the concern is that this may represent recurrent optic neuritis, and she agrees that IV steroids for acute treatment is recommended, thus necessitating the patient's hospitalization. Rare possibilities do include neuromyelitis optica, and I do recommend that this antibody be obtained as an outpatient and sent to the [facility] for evaluation, as this lab some of the highest sensitivity in terms of laboratories in [place]. PHYSICAL EXAMINATION: Temperature 36.8, pulse of 90, respiratory rate of 18, blood pressure 126/82 and pulse oximetry 99% on room air. General: She is a well-developed, well-nourished woman, in no acute distress. Head: Normocephalic, atraumatic. Neck is supple. No carotid bruits were auscultated. Negative Kernig. Negative Brudzinski. Chest: Clear to auscultation. Heart: Regular rate and rhythm. Abdomen: Soft, nondistended, nontender. Extremities: No cyanosis, clubbing, or edema. NEUROLOGICAL EXAMINATION: Cranial nerves, pupils equal, round, reactive to light. Extraocular movements were smooth and conjugate with no evidence of nystagmus. Face appeared symmetrical. Visual cano were full to confrontation. Visual acuity, she was able to correctly identify two numbers on the 2200 line in both eyes. Face appeared symmetrical. Facial sensation was intact to light touch and temperature. Auditory sensation was intact to finger rub. Palatal elevation was symmetrical. Tongue was midline. Sternocleidomastoids and trapezii are 5/5 bilaterally. Motor today, muscle strength 5/5 throughout, normal tone and bulk. She reports that today she feels that her left arm has much improved. Sensation intact to light touch and temperature. Coordination: Uswocw-dl-frde was intact, without evidence of dysmetria. Deep tendon reflexes 2+ and symmetrical. Plantars flexor bilaterally. Gait deferred. IMPRESSION: Recurrent optic neuritis. RECOMMENDATIONS: I did increase her gabapentin to 2400 mg, and she also takes amitriptyline 100 mg. She reports that there was a delay in this medication taking effect for her, and she requested that I prescribe it for 1800 time on a daily basis. She has also requested oxycodone 5/325, to be given as often as every 8 hours for continued ankle pain. I did restart this medication. I do defer to the hospitalist for any other pain management related to medication changes. I did review her case again with Dr. Taylor, and she did recommend obtaining a magnetic resonance imaging study of her orbits. I reviewed this with Dr. Ortega, a neuroradiologist, and he did not see any enhancement. However, he did inform me that a magnetic resonance imaging study of the brain with special attention to the orbits is the definitive test to identify optic neuritis related findings. In this case it appears that her symptoms likely represent recurrent optic neuritis as opposed to a relapsing remitting multiple sclerosis exacerbation. My recommendation would be to complete the five-day course of IV steroids, follow up with her wood patternmaker, obtain a neuromyelitis optica antibody to be sent to the [facility] as an outpatient. She may also benefit from a second opinion from the [facility] or multiple sclerosis centers regarding whether and what type of multiple sclerosis she has, as based on the most recent magnetic resonance imaging study of the brain, at this point all I can see is one single punctate lesion. It is my understanding that she did receive a diagnosis of multiple sclerosis in the past and I do recommend a second opinion from a multiple sclerosis center. It is rather unique that she does have only one single punctate lesion on her magnetic resonance imaging study of the brain, as well as the cervical and thoracic spines. However, it is certainly possible. However, my concern is that she may have recurrent optic neuritis or neuromyelitis optica spectrum disorder, which are treated differently from multiple sclerosis and thus, she would benefit from an outpatient evaluation to further delineate the nature of her neurologic illnesses. My recommendation is to complete the steroids and to follow up with her primary care provider within one week. I also recommend that she follow up with Dr. Taylor for further evaluation and her primary care provider. Please feel free to contact me with any questions or concerns. Thank you, again, Dr. Kitchen for allowing me to participate in the care of your patient. VICKY
[2016-11-22] MEDS: DEXTROSE 5% IV SCH ×2 (12:55→17:10)
[2016-11-22] MEDS: METHYLPRED SODIUM SUCC IV SCH ×2 (12:55→17:10)
--- NOTE | 2016-11-22 13:49 | DRSVH ---
PROCEDURE: MRI ORBITS WITH AND WITHOUT CONTRAST ([id number]) INDICATIONS: Optic Neuritis TECHNIQUE: Noncontrast sagittal T1 spin echo, axial FLAIR, axial gradient echo, axial diffusion and ADC acquired through the brain. Coronal STIR, thin-slice axial T1 spin echo through the orbits. After the admin istration of contrast, thin-slice axial and coronal T1 spin echo with fat saturation through the orbi ts, axial T1 spin echo with fat saturation through the brain. COMPARISON: [facility], MR, MR MS BRAIN W&WO CON, 11/21/2016, 7:46. FINDINGS: Image quality: Excellent. Orbits: Globes are symmetrical. The optic nerves are normal in size, without abnormal signal or enh ancement. No retrobulbar masses or fat abnormalities. The extra-ocular muscles are normal and symme tric in appearance. Lacrimal glands are normal. Optic chiasm is normal. Periorbital soft tissues a ppear normal. CSF spaces: Ventricles are normal in size and shape. Basal cisterns are patent. No extra-axial flu id collections. Brain: No intracranial bleeds or mass effects. No abnormal intracranial enhancement. Helm-white ma tter interface is intact. Punctate-R. signal intensity focus within the left subcortical white matter is unchanged. Diffusion weighted images demonstrate no acute ischemic insults. Pituitary gland appe ars normal, without sellar or suprasellar masses. Brainstem appears normal. Normal intravascular fl ow voids are present. Skull and face: Calvarial marrow is normal in signal. Sinuses: Sinuses and mastoids are clear. IMPRESSION: 1. No evidence of optic neuritis. 2. No change in nonspecific, punctate focus of FLAIR signal hyperintensity within the left frontal dangelo bcortical white matter. Dictated by: Yovanny Greco M.D. on 11/22/2016 at 13:41 Approved by: Yovanny Greco M.D. on 11/22/2016 at 13:48
--- NOTE | 2016-11-22 19:04 | NUR ---
Pain- Patient has had numerous complaints of various areas of pain from her eyes and head to her left ankle. She has also complained of nausea with IV Steroids, and Zofran given prior to giving the dose. Patient becomes tearful and anxious regarding hospitalization and plan of care. Ambulating to bathroom and showered. Steady on feet when up.Tele-sinus rhythm.
--- NOTE | 2016-11-22 22:52 | NUR ---
Pain/Nausea/Tele Pt c/o nausea-Zofran given c/o eye pain-Dilaudid given c/o ankle pain-Percocet given Zofran, Percocet, and Dilaudid with good effect per Pt. Pt up in bed watching television without c/o blurry vision or visual disturbances. Denies chest pain and shortness of breath. Tele SR 80's.
[2016-11-23 00:53] VITALS: BP 151/98; PULSE 74; RESP 18; O2SAT 98
[2016-11-23] MEDS: HYDROmorphone 1 mg/mL Inj IVPUSH PRN ×2 (01:34→05:36)
[2016-11-23] MEDS: Ondansetron 2 mg/mL 2 mL Inj IVPUSH PRN ×4 (01:35→21:13)
--- NOTE | 2016-11-23 03:44 | NUR ---
Pain Pt c/o of eye/forehead pain stated, "It jolted me out of me sleep." Pt sitting on the side of bed laughing with staff. Tylenol given awaiting effects. Denies blurry vision and visual disturbances.
[2016-11-23 04:57] VITALS: BP 130/84; PULSE 90; RESP 18; O2SAT 98
[2016-11-23] MEDS: oxyCODONE-Acetamin 5-325 mg Tablet PO PRN ×3 (07:02→23:30)
[2016-11-23 07:38] LABS: BASOPHILS % (AUTO) 0.1 % (0-3); EOSINOPHILS % (AUTO) 0 % (0-5); MONOCYTES % (AUTO) 4.4 % (4-12); Mean Corpuscular Hemoglobin 30.7 pg (27.0-35.0); Mean Corpuscular Volume 91.3 fL (81-100); NEUTROPHILS % (AUTO) 85.2 % (40-74); Platelet Count 346 bil/L (150-400)
[2016-11-23] MEDS: Insulin LISPRO 300 Unit/3 mL Inj SUBQ SCH ×4 (07:44→21:37)
[2016-11-23] MEDS: Pantoprazole 20 mg ER24 Tablet PO SCH ×2 (07:47→19:44)
[2016-11-23] MEDS: Lisinopril 40 Tablet PO SCH (07:48)
[2016-11-23] MEDS: Ondansetron 2 mg/mL 2 mL Inj IVPUSH SCH (07:53)
[2016-11-23] MEDS ORDERED: SODIUM CHLORIDE 0.9% IV SCH ×3 (08:30→15:00)
[2016-11-23] MEDS ORDERED: METHYLPRED SODIUM SUCC IV SCH ×3 (08:30→15:00)
[2016-11-23] MEDS: HYDROmorphone 0.5 mg/0.5 mL iSecure Syringe IVPUSH SCH (09:00)
--- NOTE | 2016-11-23 10:39 | PCM.PNMED ---
Subjective Date of Service Nov 23, 2016 Subjective Doing well this morning, reports her blurry vision has improved. Her pain is still persistent but also improving. She is eating and drinking well, normal BMs. Exam Vital Signs Vital Sign - Last Date Time Temp Pulse Resp B/P Pulse Ox O2 Delivery O2 Flow Rate FiO2 11/23/16 04:57 36.6 90 18 130/84 98 Room Air 11/21/16 04:41 2.00 Intake and Output 11/22/16 11/22/16 11/23/16 Cumulative From/Thru 15:00 23:00 07:00 11/20/16 12:13 - 11/23/16 06:02 Intake Total 1364 ml 946 ml 4700 ml Output Total 1900 ml 2350 ml 9700 ml Balance -536 ml -1404 ml -5000 ml Intake Oral 860 ml 946 ml 4196 ml IV Total 504 ml 504 ml Output Urine Total 1900 ml 2350 ml 9700 ml # Bowel Movements 0 0 Exam General/Constitutional: Awake, Alert, No acute distress, Cooperative Head / Eyes: Atraumatic, PERRLA, EOMI ENT: Mucous membranes moist, Conjunctiva normal, No scleral icterus Neck: Supple, Non-tender, Full range of motion Respiratory: CTAB No respiratory distress, No rales, No rhonchi, No wheezing Cardiovascular: Regular rate and rhythm, soft systolic murmur noted Abdomen / GI: Soft, Obese, Non-tender, No guarding, No rebound, No distention Extremities: Vascular intact, Neuro intact, No swelling, No tenderness Skin: Warm, Dry, No cyanosis, skin irritation under telemetry pads. Psychiatric: Normal mood and affect this morning Neurologic: Alert and oriented x3, conversive, fluent IVs and Medications Medications Reviewed: Medications were reviewed in detail Lab and Diagnostics Result Diagram: 11/22/1660911/22/16609 Assessment & Plan 46 yo F with h/o MS, Lupus, optic neuritis, HTN, and anxiety who presents with complaints of pain and pressure behind her eyes beginning last night. Admitted for possible exacerbation of MS and Optic Neuritis Blurry vision, POA -Likely due to MS exacerbation of Optic neuritis -Will continue IV Solu-medrol 250mg 4x per day. Patient had IV Solumedrol 1gram on 11/21. Per recommendations, will need 3 days of intense IV solu-medrol then transition to PO Prednisone (1mg/kg) for 11 days to make 14 days total of aggressive steroid therapy. Then short taper off. -Appreciate Neurology input and recommendations. -IV Dilaudid and PO Percocet for pain management -Elevated WBC today, likely due to Steroids, but continue to monitor closely for s/s of infection. - Telemetry d/c, no events noted. Patient having allergic reaction to the adhesive also. Steroid Induced DM2, POA - Will place on insulin lispro sliding scale H/O Anxiety, POA - Continue Amitriptyline 50 mg HS - Clonazepam 1mg TID prn Neuropathic pain, POA - Continue on Gabapentin - Dosing per Neurology GI ppx: PPI DVT ppx: Heparin Antiemetics and Analgesics as per protocol Code: Full code Status: Will likely be here 1-2 more days for IV steroids and tapering. Pain Evaluation: Adequate Pain Control GI Prophylaxis: Proton Pump Inhibitor VTE Prophylaxis: Sub-Q Heparin (Unfractionated) VTE Mechanical Devices: Venous Foot Pump Resuscitation Status: CPR: Attempt Resuscitation Time spent 25 minutes Attending Statement I have seen and evaluated patient at bedside, in addition to directly supervising care provided by resident physician. I agree with above documentation. Dagoberto Arango DO Nov 23, 2016 06:52 Santosh Holder DO Nov 24, 2016 07:33
[2016-11-23 11:38] VITALS: BP 145/93; PULSE 81; RESP 16; O2SAT 94
--- NOTE | 2016-11-23 11:51 | NUR ---
Social Work-readiness for discharge: Data:EMR Reviewed. Pt is on day 3 of hospitalization for MS flare per H&P. Per MD, pt will be in the hospital at least 1-2 more day. Neurology seeing pt and managing steroids. Pt resides at home with her parents and has [facility] caregivers. Per RN notes, pt has been up independent in her room. SW confirmed plan with pt who is agreeable and states her dad will pick her up at discharge. No anticipated discharge needs. SW will continue to follow if needs arise. Assessment:Pt who is independent at baseline. Plan:Pt to discharge home with family when medically stable via POV. Pt to continue with [facility] caregivers. No anticipated discharge needs. SW will continue to follow if needs arise. Marilu Alford MSW
[2016-11-23] MEDS ORDERED: HYDROmorphone 0.5 mg/0.5 mL iSecure Syringe IVPUSH SCH ×2 (12:00→16:20)
[2016-11-23] MEDS ORDERED: Ondansetron 2 mg/mL 2 mL Inj IVPUSH SCH ×2 (12:00→16:20)
--- NOTE | 2016-11-23 13:04 | NUR ---
Dilaudid/shift note Pt receiving IV solumedrol today @ 0830/1200/1500. Neurology ordered IV Dilaudid and IV Zofran to be administered prior to steroids. Dilaudid for 1200 didn't show up in [facility], 0830 time was listed still. PRN order was visible but not due yet with timing. In the AM, 0.5 mg Dilaudid syringe dropped out, at lunch, 1mg Carpuject was the only option. Waste recorded with colleague. Primary RN called Rx-spoke with Cam. Stated to see the confusion and working on changing the way Rx are seen in [facility]. Pt compliant with cares. Able to make needs known. Uses call light appropriately. Pt reports pain at 8/10 prior to medications. Reported to be vomiting, no vomitus seen by primary RN or student RN. Up to chair for meals. Bed in low position, call light in reach, will continue with frequent rounding. Addendum: 11/23/16 at 1701 by FADI BLAKE RN 1500 Zofran & Dilaudid administered late d/t order NOT being in [facility]. Charge on shift verified that the above 2 IV medications appeared to have been given- last time at 1200. Several other times where seen, but also as "administered". SEVERAL calls made to [facility]. 1 call to Aslhey with IT. Rx reset pt record in [facility], at which point primary RN was able to withdraw meds as it was listed to NOT have been previously given.
[2016-11-23 14:06] VITALS: BP 126/82; PULSE 107; RESP 16; O2SAT 95
--- NOTE | 2016-11-23 14:10 | NUR ---
CP pt c/o CP at 1405. VS taken-WNL. on 2L O2 via NC. Pt describes pain worsening if on L side and SOB. paged. STAT EKG ordered. MD up to assess pt. Primary RN and student RN at pts bedside. Addendum: 11/23/16 at 1928 by FADI BLAKE RN CP mostly resolved over time and a 1x Ativan. EKG printout given to . Ice pack provided for L foot, pt applied it to chest and states it helped with CP.
[2016-11-23] MEDS ORDERED: HYDROmorphone 0.5 mg/0.5 mL iSecure Syringe IVPUSH ONE ×3 (15:00→15:55)
[2016-11-23] MEDS ORDERED: Ondansetron 2 mg/mL 2 mL Inj IVPUSH ONE ×2 (15:00→15:35)
[2016-11-23] MEDS ORDERED: HYDROmorphone 1 mg/mL Inj IVPUSH ONE (15:35)
[2016-11-23 17:58] VITALS: BP 142/87; PULSE 110; RESP 18; O2SAT 95
[2016-11-23 20:27] VITALS: BP 142/95; PULSE 91; RESP 18; O2SAT 98
[2016-11-23] MEDS: HYDROmorphone 0.5 mg/0.5 mL iSecure Syringe IVPUSH PRN (21:12)
--- NOTE | 2016-11-23 21:33 | PROG NOTE ---
[address] [address] PROGRESS NOTE PATIENT: RICK BRIGGS : 1970 MR#: [id number] ADMIT: 11/20/2016 JOB ID: [id number] DATE: 11/23/2016 SUBJECTIVE: The patient reports that she continues to note improvement in her vision. Otherwise, no new neurologic symptoms. PHYSICAL EXAMINATION: Temperature 36.8, pulse of 107, respiratory rate of 16, blood pressure 126/82, pulse oximetry 95% on room air. General: She is a well-developed, well-nourished woman in no acute distress. Head: Normocephalic, atraumatic. Neck is supple. No carotid bruits were auscultated. Negative Kernig. Negative Brudzinski. Chest: Clear to auscultation. Heart: Regular rate and rhythm. Abdomen: Soft, nondistended, nontender. Extremities: No cyanosis, clubbing, or edema. NEUROLOGIC EXAMINATION: Cranial nerves: Pupils equal, round, reactive to light. Extraocular movements were smooth and conjugate with no evidence of nystagmus. Face appeared symmetrical. Facial sensation was intact to light touch and temperature. Visual cano were full to confrontation. She did still report a degree of red desaturation. Today, she was 20/70 in the right eye and 20/100 in the left eye. She does report a red desaturation in both eyes. Auditory sensation intact to finger rub bilaterally. Sternocleidomastoid and trapezii were 5/5. Motor: Muscle strength 5/5 throughout. Normal tone and bulk. Sensation intact to light touch and temperature. Motor: No pronator drift. No tremor was noted. Coordination: Cwsbbp-mm-vdwi was intact without evidence of dysmetria. Deep tendon reflexes were 2+ and symmetrical. Plantars were flexor bilaterally. Gait was deferred. IMPRESSION: Recurrent optic neuritis. I would complete a course of IV steroids. She did report that she felt a degree of chest tightness during the infusion today and so therefore I will change the infusion tomorrow slightly such that she is given 250 mg IV x4 by at least 1 hour between the end of one infusion and the initiation of the next infusion. Reviewed side effects in detail. Patient is interested in completing a course of IV steroids. I do recommend that she follow up with her primary care provider, and she reports that she has an appointment on Monday with Dr. 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 VICKY
[2016-11-24 00:52] VITALS: BP 135/89; PULSE 96; O2SAT 96
[2016-11-24] MEDS ORDERED: LORazepam 0.5 mg Tablet PO ONE (00:55)
[2016-11-24] MEDS: Ondansetron 2 mg/mL 2 mL Inj IVPUSH PRN ×2 (01:21→05:41)
[2016-11-24] MEDS: HYDROmorphone 0.5 mg/0.5 mL iSecure Syringe IVPUSH PRN ×2 (01:21→05:40)
--- NOTE | 2016-11-24 02:46 | NUR ---
chest pain Pt complained of chest pain/anxiety, asked for ativan that was given earlier in the day. Took vitals: BP135/89, HR98, and O2 95% at 0057. Paged , ativan ordered. Administered with good results. Left room with call light at bed side.
[2016-11-24 05:46] LABS: BASOPHILS % (AUTO) 0.1 % (0-3); EOSINOPHILS % (AUTO) 0 % (0-5); MONOCYTES % (AUTO) 5.2 % (4-12); Mean Corpuscular Hemoglobin 30.6 pg (27.0-35.0); Mean Corpuscular Volume 91.4 fL (81-100); NEUTROPHILS % (AUTO) 82.5 % (40-74); Platelet Count 376 bil/L (150-400)
[2016-11-24 06:51] VITALS: BP 130/76; PULSE 89; RESP 18; O2SAT 92
[2016-11-24] MEDS: METHYLPRED SODIUM SUCC IV SCH ×3 (07:40→12:00)
[2016-11-24] MEDS: SODIUM CHLORIDE 0.9% IV SCH ×3 (07:40→12:00)
[2016-11-24] MEDS: HYDROmorphone 0.5 mg/0.5 mL iSecure Syringe IVPUSH SCH ×3 (07:41→12:00)
[2016-11-24] MEDS: Ondansetron 2 mg/mL 2 mL Inj IVPUSH SCH ×3 (07:41→12:00)
[2016-11-24] MEDS: oxyCODONE-Acetamin 5-325 mg Tablet PO PRN (07:42)
[2016-11-24] MEDS: Pantoprazole 20 mg ER24 Tablet PO SCH (07:43)
[2016-11-24] MEDS: Lisinopril 40 Tablet PO SCH (07:45)
[2016-11-24] MEDS: Insulin LISPRO 300 Unit/3 mL Inj SUBQ SCH ×2 (08:01→12:00)
--- NOTE | 2016-11-24 08:10 | NUR ---
IV MEDS Pt receiving IV solumedrol, per MD orders, pt to get IV Dilaudid and Zofran prior to infusion. This RN attempted to get above mentioned meds out of [facility] but timing was off and it appeared as though ALL of them were given by prior shift. q4, scheduled and PRN meds. Call was made to Rx, spoke with pharmacist and [facility]. Meds were rescheduled to appear at 06/01/12 time. 10AM meds appeared appropriately timed.
[2016-11-24 09:03] VITALS: BP 138/104; PULSE 94; RESP 16; O2SAT 97
[2016-11-24 12:08] VITALS: BP 103/88; PULSE 94; RESP 16; O2SAT 94
--- NOTE | 2016-11-24 13:00 | NUR ---
Diabetic teaching Called by primary RN for staff to see patient re: diabetic teaching. Patient reports she has diabetic parents and has taken Insulin. She reports feeling quite experienced in managing blood glucose. Reviewed supplied glucometer and handouts. Patient anxious to leave hospital, "family waiting in car." Glucometer and ten day supplies given to patient. Requested primary RN follow up with discharging MD to give patient prescription for future supplies.
--- NOTE | 2016-11-24 13:12 | NUR ---
IV solumedrol refusal Pt received 2/4 IV infusions today. 3rd dose was due at 12 and again at 1400. Pt refused noon o'clock dose demanded IV to be taken out. Primary RN spoke with deborah MATTHEWS to d/c IV. ordered nurse diabetic teaching, RN came up and provided such. Pt noted to be on the phone with neurologists office while RN was present-asking for prednisone. Dr Baires called primary RN confirming no need of oral steroids with discharge. As per Dr Baires's note, encouraged pt to f/u with see wheeler and PCP.
[2016-11-24] MEDS ORDERED: GABA400C PO (13:21)
[2016-11-24] MEDS ORDERED: INSLIS SUBQ (13:21)
--- NOTE | 2016-11-24 13:33 | PCM.DIMED ---
Gigi Hirsch DO 11/24/16 1333: Discharge Instructions Date of Service Nov 24, 2016 Dates of Hospitalization Nov 20, 2016 at 15:06 Discharge Diagnosis Discharge Diagnosis Blurry vision, present on admission, ongoing -Likely due to MS exacerbation of Optic neuritis Steroid Induced DM2, POA Anxiety, present on admission, ongoing Neuropathic pain, present on admission, ongoing Medication Instructions For your hospitalization, you were admitted for likely optic neuritis due to your possible underlining MS. We recommend that you follow-up with your Primary care provider within the week. You will need to be refer to an kennel worker, Dr. Taylor. Additionally, we like you to get a second opinion on your MS. Please call and schedule an appt with [facility] or multiple sclerosis centers Follow-insulin dosing per dietetic education instructions. I believe this will only be short term given that you are no longer taking prednisone Lispro insulin per sliding scale Blood sugar <150, 0 unit Blood sugar 151-175, 1unit Blood sugar 176-200, 2units Blood sugar 226-250, 3units Blood sugar 251-275, 5units Blood sugar 276-300, 6units Blood sugar 301 325, 7 units Blood sugar 326-350, 8 units Blood sugar 351-375, 9 units Blood sugar 376-400, 10units Blood sugar >400, 12units Your gabapentin dose has increased. Please take gabapentin 2400mg nightly. Diet Diabetic Activity No restrictions Call your provider Fever or Chills Patient Instructions Follow-up Provider: Radha Ramírez Follow-up with PCP in: 1 week Santosh Holder DO 11/25/16 0759: Discharge Instructions Attending's Statement Read and agree Gigi Hirsch DO Nov 24, 2016 13:33 Santosh Holder DO Nov 25, 2016 07:59
--- NOTE | 2016-11-24 13:57 | NUR ---
Social Work: Discharge Data: Pt is on day 4 of hospitalization. EMR reviewed. Pt's d/c orders are in. No d/c planning needs identified at this time. [employer] will continue to follow if needs arise. Assessment: Pt with [facility]. Plan: Pt will d/c home via POV today with [facility]. No d/c planning needs identified at this time. [employer] will continue to follow if needs arise. JESSICA Gavin
--- NOTE | 2016-11-24 14:24 | NUR ---
Discharge Pt d/c home with her father at 1358. IV d/c prior to leaving. Pt c/o 06/01 pain-known to be at baseline. PO Klonopin given prior to leaving d/t pt crying, stating that she wanted to go home. All personal belonging left with pt. VSS. Discharge info discussed briefly, pt stated to know everything about MS and its care.
--- NOTE | 2016-11-24 20:54 | PCM.DC.MED ---
Discharge Summary Date of Service Nov 24, 2016 Dates of Hospitalization Date of Hospital Admission Nov 20, 2016 at 15:06 Date of Discharge: Nov 24, 2016 Providers: Admitting Physician: Ace Shaffer MD Primary Care Physician: Radha Ramírez Attending Physician: Ace Shaffer MD Diagnosis at Time of Discharge Diagnosis at Time of Discharge Blurry vision, present on admission, ongoing -Likely due to MS exacerbation of Optic neuritis Steroid Induced DM2, POA Anxiety, present on admission, ongoing Neuropathic pain, present on admission, ongoing Consultations Neurology Consultation IMPRESSION: It appears that she does have a recurrent optic neuritis based on clinical history and examination. I will contact Dr. Taylor to discuss any further recommendations. I do recommend five days of IV methylprednisolone. I also recommend obtaining magnetic resonance imaging studies of her brain and cervical and thoracic spines to exclude the possibility of an exacerbation of multiple sclerosis. It appears that she has followed with her primary care provider. I will attempt to ascertain if she has seen a neurologist in the interim since seeing me in 2014. It appears that she is not on any disease modifying therapy for either her relapsing remitting multiple sclerosis or her systemic lupus erythematosus. As this appears to be the second bout of optic neuritis, it is certainly possible that this may represent an underlying neuromyelitis optica and I will ascertain if this antibody has been sent for from her security sme. If not, she would benefit from seeing her security sme and possibly even a neuro-security sme as an outpatient. I also recommend obtaining a Addison Montesinos virus screen, so that we may further determine if we do choose to pursue a disease modifying therapy, which disease modifying therapy might be the best option for her. Thank you, again, Dr. Farhat Kitchen for allowing me to participate in the care of your patient. Please feel free to contact me with any questions or concerns. I will continue to follow her during her course in the hospital. Sree Baires MD 11/22/16 6041 Brief History 46 year old female with h/o multiple sclerosis, lupus, retinitis, fibromyalgia, congestive heart failure, hypertension, GERD, asthma, anxiety, presented to ED with c/o pain and pressure behind her eyes that began last night. She states that her symptoms have gradually worsened since onset and she has also experienced blurred vision and bilateral ear pain. It is also associated with head ache. She had similar episodes in the past and was diagnosed with retinitis. She was admitted and treated with intravenous steroids. She also mentions left arm weakness that she first noticed last night. She feels like she is having an exacerbation of multiple sclerosis. Pt seen and examined bed side. She still c/o blurry vision, Also mentions that her pain his significantly less than before. Hospital Course Patient is a 46yof with MHx significant for MS, Lupus, optic neuritis, HTN, and anxiety who presented with complaints of pain and pressure behind her eyes beginning last night. Admitted for possible exacerbation of MS and Optic Neuritis. Symptoms resolved with 5 days stressed dosed steroids. Blurry vision, POA -Likely due to MS exacerbation of Optic neuritis -IV Solu-medrol 250mg 4x per day. Patient had IV Solumedrol 1gram on 11/21. No steroid taper necessary per Neurologist Dr. Baires. -Patient on chronic predisone 25mg daily at baseline. -IV Dilaudid and PO Percocet for pain management -Elevated WBC, likely due to Steroids, no signs or symptoms of infections -Telemetry d/c, no events noted. Patient having allergic reaction to the adhesive also. -Vision back to baseline per patient. Patient refused last dosed of prednisone -CHRIS virus pending. Patient may benefit from disease modifying therapy Steroid Induced DM2, POA - place on short-term insulin lispro sliding scale - diabetic edu given H/O Anxiety, POA - Continue Amitriptyline 50 mg HS - Clonazepam 1mg TID prn Neuropathic pain, POA - Discharge on Gabapentin 2400mg HS Exam Vital Signs (Last) Date Time Temp Pulse Resp B/P Pulse Ox O2 Delivery O2 Flow Rate FiO2 11/24/16 12:08 36.6 94 16 103/88 94 Room Air 11/21/16 04:41 2.00 Exam Gen: anxious HEENT: PERRLA, Anicteric sclerae, moist conjunctivae, and no lid lag. Neck: supple, no JVD Cardio: Regular rate and rhythm with no murmurs, rubs, or gallops appreciated Pulm: b/l air sound, no crackles, wheezes, or rhonchi. Normal respiratory effort with no use of accessory muscles. Abd: positive bowel tone. Soft, nontender, nondistended. Extremities: No clubbing, cyanosis, edema, or lymphadenopathy appreciated. Skin: Normal temperature, turgor, and texture; no rash, ulcers, or subcutaneous nodules appreciated. Neuro: Cranial nerves grossly intact. moving equally on all four limbs. Psyc: Normal mood and affect. AoX3 Test 11/20/16 12:51 11/20/16 14:06 11/20/16 14:20 11/20/16 19:05 Erythrocyte Sedimentation Rate 7mm/hr (0-32) Magnesium Level 2.1mg/dL (1.6-2.6) Hold Tesfaye Top Tube Received (Received) C-Reactive Protein 0.3mg/dL (0.0-0.5) Urine Color Yellow (YELLOW) Urine Appearance Clear (CLEAR,HAZY) Urine pH 6.5 (5.0-8.0) Urine Specific Douglas 1.020 (1.003-1.035) Urine Protein Negativemg/dL (NEG,TRACE) Urine Glucose (UA) Negativemg/dL (NEGATIVE) Urine Ketones Negativemg/dL (NEGATIVE) Urine Occult Blood Negative (NEGATIVE) Urine Nitrite Negative (NEGATIVE) Urine Bilirubin Negative (NEGATIVE) Urine Urobilinogen Normalmg/dL (NORMAL) Urine Leukocyte Esterase Negative (NEGATIVE) Urine RBC 0-2/hpf (0-2) Urine WBC 0-5/hpf (0-5) Urine Epithelial Cells Few/hpf (NONE-MOD) Urine Crystals None seen (NONE SEEN) Urine Bacteria None/hpf (NONE-FEW) Urine Hyaline Casts None/lpf (NONE) Urine Granular Casts None seen (NONE SEEN) Urine Waxy Casts None seen (NONE SEEN) Urine Red Blood Cell Casts None seen (NONE SEEN) Urine White Blood Cell Casts None seen (NONE SEEN) Urine Mucus None seen (None Seen) Urine Trichomonas None seen (NONE SEEN) Urine Yeast None (NONE SEEN) Urinalysis Comment None Urine Culture Reflexed Not indicated Test 11/21/16 05:20 11/22/16 06:10 11/23/16 05:57 11/24/16 05:20 Band Neutrophils % 2% (1-5) Ionized Calcium 1.18mmol/L (1.17-1.32) White Blood Count 14.1th/mm3 (3.8-10.1) Red Blood Count 5.23mil/mm3 (3.90-5.20) Hemoglobin 16.0g/dL (12.0-15.6) Hematocrit 47.8% (35.0-46.0) Mean Corpuscular Volume 91.4fL (81-100) Mean Corpuscular Hemoglobin 30.6pg (27.0-35.0) Mean Corpuscular Hemoglobin Concent 33.5% (32.0-37.0) Red Cell Distribution Width 12.7% (12.3-15.4) Platelet Count 376bil/L (150-400) Neutrophils (%) (Auto) 82.5% (40-74) Lymphocytes (%) (Auto) 11.1% (14-46) Monocytes (%) (Auto) 5.2% (4-12) Eosinophils (%) (Auto) 0% (0-5) Basophils (%) (Auto) 0.1% (0-3) Sodium Level 138mEq/L (134-144) Potassium Level 4.4mEq/L (3.5-5.2) Chloride Level 93mEq/L (97-108) Carbon Dioxide Level 28mmol/L (18-29) Blood Urea Nitrogen 25mg/dL (6-24) Creatinine 0.95mg/dL (0.57-1.00) Estimat Glomerular Filtration Rate 92mL/min (>59) Glucose Level 166mg/dL (60-99) Calcium Level 10.0mg/dL (8.5-10.1) Total Bilirubin 0.2mg/dL (0.0-1.2) Aspartate Amino Transf (AST/SGOT) 20U/L (0-50) Alanine Aminotransferase (ALT/SGPT) 50U/L (0-32) Alkaline Phosphatase 82U/L (25-150) Total Protein 8.1g/dL (6.4-8.4) Albumin 4.9g/dL (3.4-5.0) Discharge Medications Discharge Medications Amitriptyline (Amitriptyline) 100 Mg Tablet 100 MG PO HS (Reported) Amlodipine (Amlodipine) 10 Mg Tablet 10 MG PO DAILY (Reported) Gabapentin (Neurontin) 400 Mg Capsule 2,400 MG PO HS Prescribed by: UYEN HIRSCH DO Hydrochlorothiazide (Hydrochlorothiazide) 25 Mg Tablet 25 MG PO DAILY (Reported ) Insulin Human Lispro (HumaLOG U100 Insulin Vial) 100 Unit/Ml Unit 0 UNIT SUBQ WMHS Check blood sugars before meals and at bedtime. Use correction factor only before meals. Blood Sugar Lispro Correction: <151, 0 units; 151-175, 1 unit; 176-200, 2 units; 201-225, 3 units; 226-250, 4 units; 251-275, 5 units; 276-300 , 6 units; 301-325, 7 units; 326-350, 8 units; 351-375, 9 units; 376-400, 10 units; >400, 12 units. Prescribed by: UYEN HIRSCH DO Lisinopril (Lisinopril) 40 Mg Tablet 40 MG PO DAILY (Reported) Omeprazole (Omeprazole) 40 Mg Capsule.dr 40 MG PO DAILY (Reported) As needed Albuterol HFA (Albuterol HFA) 8.5 Gm Hfa.aer.ad 1 PUFF IH Q4 PRN PRN For Shortness of Breath (Reported) Clonazepam (Clonazepam) 1 Mg Tab 1 MG PO TID PRN PRN For Anxiety (Reported) Ondansetron ODT (Ondansetron ODT) 4 Mg Tab.rapdis 4 MG PO BID PRN PRN For Nausea (Reported) Oxycodone HCl/Acetaminophen 5-325 (Endocet 5-325) 1 Each Tablet 1-2 TABLET PO Q4H PRN PRN For Pain (Reported) Additional med instructions For your hospitalization, you were admitted for likely optic neuritis due to your possible underlining MS. We recommend that you follow-up with your Primary care provider within the week. You will need to be refer to an security sme, Dr. Taylor. Additionally, we like you to get a second opinion on your MS. Please call and schedule an appt with [facility] or multiple sclerosis centers Follow-insulin dosing per dietetic education instructions. I believe this will only be short term given that you are no longer taking stressed dosed prednisone Lispro insulin per sliding scale Blood sugar <150, 0 unit Blood sugar 151-175, 1unit Blood sugar 176-200, 2units Blood sugar 226-250, 3units Blood sugar 251-275, 5units Blood sugar 276-300, 6units Blood sugar 301 325, 7 units Blood sugar 326-350, 8 units Blood sugar 351-375, 9 units Blood sugar 376-400, 10units Blood sugar >400, 12units Your gabapentin dose has increased. Please take gabapentin 2400mg nightly. Followup Plan Discharge Diet: Diabetic Discharge Activity: No restrictions Follow-up Provider: Radha Ramírez Follow-up with PCP in: 1 week Time spent 40 minutes Attending Statement I have seen and evaluated patient at bedside in addition to directly supervising care provided by resident physician. I agree with above documentation. Appreciate Dr Brock;'s consultation with this difficult case. Pt Plan to seek further consultation evaluation with [facility] neurology specialist on recommendation. Uyen Hirsch DO Nov 24, 2016 20:54 Santosh Holder DO Nov 25, 2016 08:15
== END 2016-11-24 14:01 | disposition home or self-care (01) | DRG 59 ==
LOC: SED 12:09 → OBSVTOIN 15:06 → MPC 15:06
PROVIDERS: ADMIT Internal Medicine; ATTEND Internal Medicine
DX: G35 Multiple sclerosis (principal); H46.9 Unspecified optic neuritis; M79.7 Fibromyalgia; I10 Essential (primary) hypertension; J45.909 Unspecified asthma, uncomplicated; K21.9 Gastro-esophageal reflux disease without esophagitis; E11.9 Type 2 diabetes mellitus without complications; L93.0 Discoid lupus erythematosus; F41.9 Anxiety disorder, unspecified; Z72.0 Tobacco use; Z79.51 Long term (current) use of inhaled steroids; Z88.0 Allergy status to penicillin; Z79.4 Long term (current) use of insulin

== ENCOUNTER 2017-04-09 09:23 | Emergency (ER) | payer MEDICAID, OTHER ==
[~2017-04-09] VITALS: Ht 167.6 cm; Wt 103.6 kg
[~2017-04-09 09:23] MED LIST changes: +AMLO10TA3 PO; -BENZ-12 PO; +GABA400C PO; -GABA600T PO; -HYDR-3740 PO; +HYDR25TA4 PO; +OXYC-407 PO; -PRD5T PO; -PRE20 PO
--- NOTE | 2017-04-09 09:35 | ED.REPORT ---
HPI-General Illness Date of Service Apr 09, 2017 ED Provider: Be Watts MD Pt is a 46 year old female with a history of lupus, MS and fibromyalgia who presents to the ED with complaints of a lupus flare-up for the past 2 days. She reports that due to the pain, she has been unable to sleep for the past two days. She states that she called her PCP who recommended that she double her Gabapentin and Oxycodone, she reports no relief. She states that she has these flare ups every 6 months or so. Pt reports that she additionally stepped on a piece of metal two days ago, and is worried that the metal chunk might still be in her right foot. She denies any fevers, but admits to chills, nausea and vomiting. She reports that her last dose of her medication was 2 5mg Oxycodone tablets at 7:45 this morning. Nursing Notes Stated Complaint: LUPUS FLARE Chief Complaint: General Complaint Nursing Notes Reviewed: Yes Allergies: Coded Allergies: Penicillins (Verified Allergy, Unknown, 04/09/17) iodine (Verified Allergy, Unknown, 04/09/17) tramadol (Verified Allergy, Unknown, 04/09/17) Scheduled Amitriptyline (Amitriptyline) 100 Mg Tablet 100 MG PO HS Amlodipine (Amlodipine) 10 Mg Tablet 10 MG PO DAILY Gabapentin (Neurontin) 400 Mg Capsule 2,400 MG PO HS Hydrochlorothiazide (Hydrochlorothiazide) 25 Mg Tablet 25 MG PO DAILY Insulin Human Lispro (HumaLOG U100 Insulin Vial) 100 Unit/Ml Unit 0 UNIT SUBQ WMHS Check blood sugars before meals and at bedtime. Use correction factor only before meals. Blood Sugar Lispro Correction: <151, 0 units; 151-175, 1 unit; 176-200, 2 units; 201-225, 3 units; 226-250, 4 units; 251-275, 5 units; 276-300 , 6 units; 301-325, 7 units; 326-350, 8 units; 351-375, 9 units; 376-400, 10 units; >400, 12 units. Lisinopril (Lisinopril) 40 Mg Tablet 40 MG PO DAILY Omeprazole (Omeprazole) 40 Mg Capsule.dr 40 MG PO DAILY Prednisone (PredniSONE) 20 Mg Tablet 40 MG PO DAILY Scheduled PRN Albuterol HFA (Albuterol HFA) 8.5 Gm Hfa.aer.ad 1 PUFF IH Q4 PRN PRN For Shortness of Breath Clonazepam (Clonazepam) 1 Mg Tab 1 MG PO TID PRN PRN For Anxiety Ibuprofen (Ibuprofen) 600 Mg Tablet 600 MG PO QID PRN PRN For Pain Ondansetron ODT (Ondansetron ODT) 4 Mg Tab.rapdis 4 MG PO BID PRN PRN For Nausea Oxycodone HCl/Acetaminophen 5-325 (Endocet 5-325) 1 Each Tablet 1-2 TABLET PO Q4H PRN PRN For Pain oxyCODONE-Acetaminophen 10-325 mg (oxyCODONE-Acetaminophen 10-325 mg) 1 Each Tablet 1 TABLET PO Q4H PRN PRN For Pain General Time Seen by MD: 09:31 Chief Complaint Not feeling well Hx Obtained From: Patient Arrived By: Walk-in Sudden in Onset?: Yes Onset Occurred: 2 days ago Symptom Duration: Since onset Quality: Painful Severity: Current: Moderate Severity: Maximum: Moderate Similar Sx Previous: Yes Past Medical History Past Medical History Notes: She just discharged yesterday 05/13/15 from hospital after admission for Exacerbation MS Past Medical History MS Lupus Fibromyalgia Anxiety Nephrolithiasis Arthritis TMJ Reports: Asthma, Cancer, Congestive heart failure, GERD, Hypertension Past Surgical History Ankle surgery x5 Reports: Cholecystectomy, Hysterectomy, Tonsillectomy Reports: Tubal ligation Family History Reports: Diabetes mellitus Smoking History Current Every Day Smoker Social History Alcohol Use: Denies alcohol use Drug Use: Denies drug use Other Social History: Good social support, Local resident Ambulatory Status Independent Review of Systems Full Review of Systems Constitutional: Reports: Chills, Malaise, Weakness - generalized, Denies: Fever Respiratory: Denies: Non-productive cough, Shortness of breath, Wheezing Cardiovascular: Denies: Chest pain, Syncope GI: Reports: Nausea, Vomiting, Denies: Abdominal pain, Constipation, Diarrhea Female: Denies: Dysuria, Urinary frequency, Urinary urgency Musculoskeletal: Reports: Back pain, Joint pain Skin: Denies Diaphoresis Neurologic: Denies: Change LOC, Dizziness, Headache, Weakness Complete sys rev & neg: except as marked. Physical Exam Vital Signs Vital Signs Date Time Temp Pulse Resp B/P Pulse Ox O2 Delivery O2 Flow Rate FiO2 04/09/17 10:50 36.8 94 16 147/83 98 Room Air 04/09/17 10:36 36.8 16 147/83 98 Room Air 04/09/17 09:37 36.8 94 20 164/109 96 Room Air Initial VS: Reviewed Head / Eyes: Atraumatic, Normocephalic, PERRL ENT: Mucous membranes moist, Conjunctiva normal, No scleral icterus Neck: Supple, Non-tender, Full range of motion Respiratory: Breath sounds normal, Clear to auscultation, No respiratory distress Cardiovascular: Regular rate & rhythm, Heart sounds normal, Intact distal pulses Abdomen / GI: Soft, Non-tender, No guarding, No rebound, No distention Skin: Warm, Dry, No cyanosis Neurologic: Alert, Oriented, Nonfocal General/Constitutional: Awake, Alert Distress / Hydration: Positive: Distress moderate Behavior: Positive: Tearful Appearance / Presentation: Positive: Uncomfortable Fingers with FROM, mild-swelling, no erythema Re-Eval/Medical Decision Med Decision/Clinical Course 46-year-old female history of lupus, MS presenting with her typical lupus flare. She reportedly gets these every 3-6 months. Reports pain in joints. No sign symptoms of infection. Her family doctor told her to come in for evaluation. She typically treats these with steroids and pain medications. She was given Toradol with significant improvement. She will be discharged with a steroid burst plans to use her home medications. NSAIDs limit given on steroids and stop if any abdominal pain. Follow-up with primary doctor tomorrow return precautions given. Source of Hx: Old records Time of Eval: 10:29 Re-Evaluation/Progress Note: Pt is rechecked and informed of her diagnosis and the plan to discharge her at this time. She understands and agrees, all questions are addressed. Counseled Regarding: Diagnosis, Lab results, Need for follow-up, When/why to return to ED Discharge & Departure Primary Impression: SLE exacerbation Disposition: Home Discharge Condition All VS Reviewed: Yes Condition: Stable Additional Instructions: Take the medications as prescribed. Do not take the extra strength ibuprofen while you are taking the steroids. If you must take the ibuprofen, it may cause you to have an upset stomach. Follow-up with your primary care provider tomorrow. Return to the emergency department with any fevers, vomiting and any other worsening or concerning symptoms. I hope you start to feel better soon. Referrals: Radha Ramírez (PCP) Scribe Attestation Portions of this note were transcribed by Deisy Faust. I, Dr. Watts personally performed the history, physical exam and medical decision-making; I reviewed and confirmed the accuracy of the information in the transcribed note. Signed by: Zeinab Nino, 04/09/2017 10:17 copies to: Radha Ramírez Ben M MD Apr 09, 2017 09:35 [place] FAUST Apr 09, 2017 09:53
[2017-04-09 09:37] VITALS: BP 164/109; PULSE 94; RESP 20; O2SAT 96
[2017-04-09] MEDS ORDERED: predniSONE 20 mg Tablet PO ONE (09:55)
[2017-04-09] MEDS ORDERED: IBUP-1827 PO (09:57)
[2017-04-09] MEDS ORDERED: OXYC-466 PO (09:57)
[2017-04-09] MEDS ORDERED: PRE20 PO (09:57)
[2017-04-09 10:36] VITALS: BP 147/83; RESP 16; O2SAT 98
[2017-04-09 10:50] VITALS: BP 147/83; PULSE 94; RESP 16; O2SAT 98
--- NOTE | 2017-04-09 10:59 | DRSVH ---
PROCEDURE: X-RAY RIGHT FOOT COMPLETE, MINIMUM THREE VIEWS ([id number]) INDICATIONS: rule out foreign body TECHNIQUE: 3 views of the foot were acquired. COMPARISON: None. FINDINGS: Bones: No fractures or dislocations. No suspicious bony lesions. Soft tissues: No tibiotalar joint effusion. Achilles tendon appears normal. IMPRESSION: No fracture Dictated by: Montana Mendez M.D. on 04/09/2017 at 10:56 Approved by: Montaan Mendez M.D. on 04/09/2017 at 10:57
== END 2017-04-09 10:40 | disposition home or self-care (01) ==
LOC: SED 09:23
DX: M32.9 Systemic lupus erythematosus, unspecified (principal); S99.921A Unspecified injury of right foot, initial encounter; W22.8XXA Striking against or struck by other objects, initial encounter; Y93.89 Activity, other specified; Y92.89 Other specified places as the place of occurrence of the external cause; Y99.8 Other external cause status; I11.0 Hypertensive heart disease with heart failure; I50.9 Heart failure, unspecified; J45.909 Unspecified asthma, uncomplicated; K21.9 Gastro-esophageal reflux disease without esophagitis; G35 Multiple sclerosis; M79.7 Fibromyalgia; F41.9 Anxiety disorder, unspecified; F17.200 Nicotine dependence, unspecified, uncomplicated; Z79.4 Long term (current) use of insulin; Z88.0 Allergy status to penicillin; Z88.5 Allergy status to narcotic agent; Z88.8 Allergy status to other drugs, medicaments and biological substances
CPT/HCPCS: 73630; 96372; 99284; J1885

== ENCOUNTER 2017-05-28 15:25 | Emergency (ER) | payer OTHER ==
[~2017-05-28] VITALS: Ht 167.6 cm; Wt 100.0 kg
[~2017-05-28 15:25] MED LIST changes: +IBUP-1827 PO; +OXYC-466 PO; +PRE20 PO
[2017-05-28 15:35] VITALS: BP 154/94; PULSE 87; RESP 26; O2SAT 98
[2017-05-28] MEDS ORDERED: HYDROcodone-APAP 5-325 mg Tablet PO ONE (16:15)
--- NOTE | 2017-05-28 16:47 | DRSVH ---
PROCEDURE: CT BRAIN WITHOUT CONTRAST ([id number]) INDICATIONS: blunt head trauma, headache TECHNIQUE: Noncontrast 4.5 mm thick angled axial sections acquired from the foramen magnum to the vertex, with c oronal reformats. COMPARISON: [facility], CT, CT BRAIN WO CON, 11/20/2016, 12:40. FINDINGS: Image quality: Good CSF spaces: Basal cisterns are patent. No extra-axial fluid collections. Ventricles are normal in size and shape. Brain: No midline shift. No intracranial masses or hemorrhage. Helm-white matter interface is norm al. Skull and face: Calvarium and visualized facial bones are intact, without suspicious lesions. Sinuses: Visualized sinuses and mastoids are clear. IMPRESSION: No acute intracranial abnormality. No change since previous CT. Dictated by: Justin Mathis M.D. on 05/28/2017 at 16:42 Approved by: Justin Mathis M.D. on 05/28/2017 at 16:44
--- NOTE | 2017-05-28 16:49 | DRSVH ---
PROCEDURE: CT CERVICAL SPINE WITHOUT CONTRAST ([id number]) INDICATIONS: blunt head trauma, headache TECHNIQUE: Noncontrast 3 mm thick sections acquired from the skull base to the T4 level. Sagittal and coronal r eformats were then constructed. For radiation dose reduction, the following was used: automated exp osure control, adjustment of mA and/or kV according to patient size. COMPARISON: None. FINDINGS: Image quality: Good. Bones: No fractures or dislocations. Visualized superior ribs are intact. Soft tissues: Prevertebral soft tissues are normal in thickness. No paravertebral hematomas. No ap ical pneumothoraces. IMPRESSION: No traumatic abnormality is seen in the cervical spine. No disc degenerative changes or f oraminal narrowing changes are seen. Dictated by: Justin Mathis M.D. on 05/28/2017 at 16:45 Approved by: Justin Mathis M.D. on 05/28/2017 at 16:47
--- NOTE | 2017-05-28 16:52 | DRSVH ---
PROCEDURE: X-RAY CHEST ONE VIEW, PORTABLE ([id number]) INDICATIONS: chest tightness TECHNIQUE: One view of the chest was acquired. COMPARISON: [facility], CR, XR CHEST 1VW (PORTABL.2017, 5:49. FINDINGS: Surgical changes and devices: flow specialist leads are seen over the chest. Lungs and pleura: No pleural effusions or pneumothorax. Lungs are clear. Mediastinum: Mediastinal contours appear normal. Heart size is normal. Bones and chest wall: No suspicious bony lesions. Overlying soft tissues appear unremarkable. IMPRESSION: No acute or active disease is seen in the upright portable chest Dictated by: Justin Mathis M.D. on 05/28/2017 at 16:49 Approved by: Justin Mathis M.D. on 05/28/2017 at 16:50
--- NOTE | 2017-05-28 18:10 | ED.REPORT ---
HPI-Trauma Minor / Fall Date of Service May 28, 2017 ED Provider: Alfredito Aguirre MD The pt is a 46 y/o female with a hx of MS, migraines, lupus, fibromyalgia, fatty liver, CHF, HTN, asthma, and anxiety, who presents to the ED via EMS complaining of diffuse headache after the CPAP machine fell on her head about 3 hours ago. She rates the pain 8/10 in severity, throbbing, nonradiating, located on the top of her head. She lost consciousness but was able to walk up to her family after waking up. Associated sx include neck pain, vomiting, lightheadedness. Though the nurse's note mentions chest tightness, the pt denies it. She states she did not complain of chest pain en route but was experiencing discomfort due to the C-collar, which resolved when she was repositioned. She has no other complaints at this time. Nursing Notes Stated Complaint: HEAD PAIN Chief Complaint: Head, Face, Neck Trauma Nursing Notes Reviewed: Yes Allergies: Coded Allergies: Penicillins (Verified Allergy, Unknown, 04/09/17) iodine (Verified Allergy, Unknown, 04/09/17) tramadol (Verified Allergy, Unknown, 04/09/17) Scheduled Amitriptyline (Amitriptyline) 100 Mg Tablet 100 MG PO HS Amlodipine (Amlodipine) 10 Mg Tablet 10 MG PO DAILY Gabapentin (Neurontin) 400 Mg Capsule 2,400 MG PO HS Hydrochlorothiazide (Hydrochlorothiazide) 25 Mg Tablet 25 MG PO DAILY Insulin Human Lispro (HumaLOG U100 Insulin Vial) 100 Unit/Ml Unit 0 UNIT SUBQ WMHS Check blood sugars before meals and at bedtime. Use correction factor only before meals. Blood Sugar Lispro Correction: <151, 0 units; 151-175, 1 unit; 176-200, 2 units; 201-225, 3 units; 226-250, 4 units; 251-275, 5 units; 276-300 , 6 units; 301-325, 7 units; 326-350, 8 units; 351-375, 9 units; 376-400, 10 units; >400, 12 units. Lisinopril (Lisinopril) 40 Mg Tablet 40 MG PO DAILY Omeprazole (Omeprazole) 40 Mg Capsule.dr 40 MG PO DAILY Prednisone (PredniSONE) 20 Mg Tablet 40 MG PO DAILY Scheduled PRN Albuterol HFA (Albuterol HFA) 8.5 Gm Hfa.aer.ad 1 PUFF IH Q4 PRN PRN For Shortness of Breath Clonazepam (Clonazepam) 1 Mg Tab 1 MG PO TID PRN PRN For Anxiety Ibuprofen (Ibuprofen) 600 Mg Tablet 600 MG PO QID PRN PRN For Pain Ondansetron ODT (Ondansetron ODT) 4 Mg Tab.rapdis 4 MG PO BID PRN PRN For Nausea Oxycodone HCl/Acetaminophen 5-325 (Endocet 5-325) 1 Each Tablet 1-2 TABLET PO Q4H PRN PRN For Pain oxyCODONE-Acetaminophen 10-325 mg (oxyCODONE-Acetaminophen 10-325 mg) 1 Each Tablet 1 TABLET PO Q4H PRN PRN For Pain General Time Seen by MD: 15:46 Chief Complaint Head injury Hx Obtained From: Patient Arrived By: Ambulance Onset Occurred: 1 - 4 hours ago Symptom Duration: Since onset Location: Head Quality: Painful Severity: Current: Pain level 8 out of 10 Severity: Maximum: Severe Recent Healthcare: No recent doctor visit Past Medical History Past Medical History Notes: She just discharged yesterday 05/13/15 from hospital after admission for Exacerbation MS Past Medical History MS Lupus Fibromyalgia Anxiety Nephrolithiasis Arthritis TMJ fatty liver migraines Reports: Asthma, Cancer, Congestive heart failure, GERD, Hypertension Past Surgical History Ankle surgery x6 Reports: Cholecystectomy, Hysterectomy, Tonsillectomy Reports: Tubal ligation Family History Reports: Diabetes mellitus Smoking History Current Every Day Smoker Social History Alcohol Use: Denies alcohol use Drug Use: Denies drug use Other Social History: Good social support, Local resident Ambulatory Status Independent Review of Systems Constitutional: Denies: Fever Eyes: Denies: Diplopia Ears / Nose / Throat: Denies: Throat swelling Musculoskeletal: Reports: Neck pain, Denies: Back pain Neurologic: Reports: Change LOC, Headache, Lightheaded, Denies: Slurred speech, Vision change Complete sys rev & neg: except as marked. Cardiovascular: Denies: Chest pain GI: Reports: Vomiting, Denies: Abdominal pain Female: Denies: Dysuria Physical Exam Nursing note and vitals reviewed. Constitutional: Well-developed, well-nourished. Not diaphoretic. Head: Normocephalic and atraumatic. Mouth/Throat: Oropharynx is clear and moist. No oropharyngeal exudate. Eyes: EOM are normal. Pupils are equal, round, and reactive to light. Neck: Supple, no tracheal deviation.No midline C-spine tenderness to palpation. Cardiovascular: Normal rate,regular rhythm. Equal and intact distal pulses throughout. Pulmonary/Chest: Effort normal and breath sounds normal. No respiratory distress. Abdominal: Soft. No distension. There is no tenderness, rebound, or guarding. Bowel sounds present. Musculoskeletal: Range of motion grossly intact, moving all extremities. No edema or tenderness appreciated. No thoracic tenderness. No lumbar tenderness. Lower extremities: Cristóbal-wrap to the left ankle. Neurological: AOx3. Grossly nonfocal exam. Strength and sensation intact and equal to bilateral upper and lower extremities. Skin: Warm and dry, no rashes or pallor appreciated. Psychiatric: Appropriate mood and affect. Behavior appears normal. Initial Vital Signs Vital Signs (First) Date Time Temp Pulse Resp B/P Pulse Ox O2 Delivery O2 Flow Rate FiO2 05/28/17 15:35 37.0 87 26 154/94 98 Room Air Initial VS: Reviewed Interpretation & Diagnostics ECG Interpretation ECG Interpretation: Normal sinus rhythm. Rate 83. Low voltage, extremity leads. Time: 16:14 Interpreted by: ED physician X-Ray Chest Interpretation Chest Xray Interpretation: IMPRESSION: No acute or active disease is seen in the upright portable chest Dictated by: Justin Mathis M.D. on 05/28/2017 at 16:49 Approved by: Justin Mathis M.D. on 05/28/2017 at 16:50 View: Portable, 1 view Interpretation / Wet Read by: Interpret - Radiologist CT Head Interpretation IMPRESSION: No acute intracranial abnormality. No change since previous CT. Dictated by: Justin Mathis M.D. on 05/28/2017 at 16:42 Approved by: Justin Mathis M.D. on 05/28/2017 at 16:44 Study: Head CT no contrast Interpretation / Wet Read by: Interpret - Radiologist CT C-Spine Interpretation IMPRESSION: No traumatic abnormality is seen in the cervical spine. No disc degenerative changes or foraminal narrowing changes are seen. Dictated by: Justin Mathis M.D. on 05/28/2017 at 16:45 Approved by: Justin Mathis M.D. on 05/28/2017 at 16:47 Study type: CT no contrast Interpretation / Wet Read by: Interpret - Radiologist Re-Eval/Medical Decision Med Decision/Clinical Course In summary, 46-year-old female presenting to the ED for evaluation after having a CPAP machine fall on her head earlier today. Differential includes intracranial bleed, cervical spine fracture, concussion, etc. There was initially some report of chest pain, however patient states that this was not actually the case and she was just uncomfortable from her c-collar earlier. She has a grossly nonfocal neurologic examination including good strength and sensation in both her upper and lower extremities. CT scan of the patient's head negative for acute abnormality. C-spine CT also negative for acute abnormality. She did receive an EKG and an x-ray of her chest, both of which were negative for acute abnormalities. Given the above, as well as her normal neurologic examination, improvement here in the ED, reasonable to discharge home with careful return precautions, concussion instructions, and PCP follow- up. Patient agreeable to the plan as stated, no further questions. Re-Evaluation/Progress : Time of Eval: 17:10 Re-Evaluation/Progress Note: Rechecked pt. Discussed lab results, imaging results, diagnosis and plan to discharge. Pt understands and agrees with the plan. F/U instruction and RTER warning given. All questions addressed. Counseled Regarding: Diagnosis, Lab results, Need for follow-up, When/why to return to ED Discharge & Departure Impression: Primary Impression: Blunt head trauma Encounter type: initial encounter Qualified Code: S09.8XXA - Other specified injuries of head, initial encounter Disposition: Home Discharge Condition All VS Reviewed: Yes Condition: Stable Patient Instructions: Concussion (ED), Head Injury (ED) Additional Instructions: Thank you for allowing us to be a part of your care. It doesn't appear that there have been any acute abnormalities as a result of the machine falling on your head. Your head CT and cervical spine CT were negative for acute abnormalities. Please return to the ED immediately if you develop vomiting, vision changes, worsening headache, neck pain, or if there's anything else of concern to you. Minimize cognitive activity - please see the attached for more information. Call your regular doctor tomorrow. Referrals: LEO CRUZ MD (PCP) Scribe Attestation Portions of this note were transcribed by Bryan Larkin. I,, personally performed the history, physical exam and medical decision-making;I reviewed and confirmed the accuracy of the information in the transcribed note. Signed by Zeinab Chadwick. 05/28/17 copies to: LEO CRUZ MD, William B MD May 28, 2017 18:10 Bryan Larkin May 28, 2017 19:03
[2017-05-28 18:16] VITALS: BP 170/100; PULSE 89; RESP 18; O2SAT 95
[2017-05-28 19:17] VITALS: BP 160/90; PULSE 82; RESP 16; O2SAT 96
== END 2017-05-28 19:18 | disposition home or self-care (01) ==
LOC: EDBD 15:25 → SED 15:25
DX: S09.8XXA Other specified injuries of head, initial encounter (principal); W20.8XXA Other cause of strike by thrown, projected or falling object, initial encounter; Y93.9 Activity, unspecified; Y92.9 Unspecified place or not applicable; Y99.8 Other external cause status; I11.0 Hypertensive heart disease with heart failure; I50.9 Heart failure, unspecified; F17.200 Nicotine dependence, unspecified, uncomplicated; M32.9 Systemic lupus erythematosus, unspecified; K21.9 Gastro-esophageal reflux disease without esophagitis; Z85.9 Personal history of malignant neoplasm, unspecified; Z79.4 Long term (current) use of insulin; Z79.899 Other long term (current) drug therapy; Z88.0 Allergy status to penicillin; Z88.5 Allergy status to narcotic agent; Z90.710 Acquired absence of both cervix and uterus